=== PATIENT | female | born 1985 | race Caucasian/White ===

== ENCOUNTER 2021-11-05 21:14 | Emergency (ER) | payer OTHER, SELFPAY ==
[2021-11-05 21:48] VITALS: BP 176/80; PULSE 69; RESP 18; TEMP 36.4; O2SAT 98; BMI 44.2
--- NOTE | 2021-11-06 00:19 | CTR_ITS ---
PROCEDURE INFORMATION: Exam: CT Head Without Contrast Exam date and time: 11/06/2021 12:57 AM Age: 36 years old Clinical indication: Pain; Patient HX: C/O headache with dizziness. Hypertensive on monitor. ; Additional info: Headache dizziness TECHNIQUE: Imaging protocol: Computed tomography of the head without contrast. Radiation optimization: All CT scans at this facility use at least one of these dose optimization techniques: automated exposure control; mA and/or kV adjustment per patient size (includes targeted exams where dose is matched to clinical indication); or iterative reconstruction. COMPARISON: No relevant prior studies available. RADIATION DOSE METRICS: Total DLP (mGy-cm): 904.57 FINDINGS: Brain: No acute hemorrhage identified. No large territorial areas of hypoattenuation concerning for ischemic infarct identified. No intracranial mass effect. Cerebral ventricles: The ventricles are within normal limits. Paranasal sinuses: The visualized sinuses are unremarkable. Mastoid air cells: The visualized mastoid air cells are well aerated. Bones/joints: The osseous structures are intact. Soft tissues: Unremarkable. CT/CT head wo con* [id number] IMPRESSION: No acute intracranial abnormality.
--- NOTE | 2021-11-06 00:19 | ECG_ITS ---
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 Measurements Intervals [place] Rate: 58 P: 8 AR: 198 QRS: 34 QRSD: 89 T: 11 QT: 414 QTc: 409 Interpretive Statements SINUS BRADYCARDIA WITH SINUS ARRHYTHMIA LOW QRS VOLTAGE IN PRECORDIAL LEADS [QRS DEFLECTION < 1.0 mV IN CHEST LEADS] No previous ECG available for comparison Electronically Signed On 11-07-2021 5:42:29 CDT by Aaron Rollins M.D. [email or web address]/[id number]
--- NOTE | 2021-11-06 00:24 | XRR_ITS ---
PROCEDURE INFORMATION: Exam: XR Chest Exam date and time: 11/06/2021 12:45 AM Age: 36 years old Clinical indication: Other: Dizziness/hypertensive; Patient HX: C/O dizziness with hypertension. ; Additional info: Dizziness, HTN TECHNIQUE: Imaging protocol: Radiologic exam of the chest. Views: 1 view. COMPARISON: No relevant prior studies available. FINDINGS: Lungs: The lung parenchyma is clear. Pleural spaces: No pneumothorax. No pleural effusion. Heart/Mediastinum: The cardiomediastinal silhouette is within normal limits. Bones/joints: Unremarkable. XR/XR chest 1V portable [id number] IMPRESSION: No acute cardiopulmonary abnormality.
--- NOTE | 2021-11-06 00:26 | ED_ITS ---
HPI - Dizziness General: Chief Complaint: Dizziness Stated Complaint: dizzy/body tingles Time Seen by Provider: 11/06/21 00:18 History of Present Illness: HPI Narrative: 36-year-old female comes in today for complaints of headache and dizziness. Patient also reports some nausea. Patient does have a history of migraines but says this is different than her usual migraine. Patient also has a history of diabetes and denies any problems with her blood sugar. Patient does take lisinopril for renal protection due to diabetes. Patient reports headache start ed last night but when she woke up she was without headache but had significant dizziness. Patient responds appropriately to questions. Associated symptoms: Reports chest pain (Reports discomfort), headache(s) and nausea; Denies vomiting Review of Systems General: Reports: 10 or more systems reviewed and unremarkable except in HPI and below Const: Denies: fever(s) Card: Reports: chest pain (Reports discomfort) Resp: Denies: dyspnea GI: Reports: nausea; Denies: vomiting : Denies: difficulty voiding Musc: Reports: extremity swelling Skin/Breast: Denies: rash Neuro: Reports: headache(s) and dizziness PENDING SALE TO [facility] ED Female Reproductive History: Date of last menstrual period: 11/01/21 Physical Exam Const: COMMON NORMALS: alert HENMT: COMMON NORMALS: Normal external nose present HEAD & SCALP: normal to inspection NOSE: Normal external nose present MOUTH: Normal oral and palatal mucosa present THROAT: posterior oropharynx normal Eye: COMMON NORMALS: Equal, round and reactive pupils present and EOMs intact bilaterally PUPIL: Yes Equal, round and reactive pupils present Neck/C-Spine: COMMON NORMALS: full ROM and no meningeal signs Resp: COMMON NORMALS: normal respiratory effort and clear to auscultation bilaterally AUSCULTATION: clear to auscultation bilaterally Cardio: COMMON NORMALS: regular rate and regular rhythm RATE: regular rate RHYTHM: regular rhythm GI: COMMON NORMALS: non-tender : COMMON NORMALS: Yes no CVA tenderness BLADDER/KIDNEY EXAM: Yes no CVA tenderness Back/Pelvis: COMMON NORMALS: no CVA tenderness Extremity: COMMON NORMALS: no pedal edema Neuro: SENSORIUM/ORIENTATION: Yes alert MENINGEAL SIGNS: Yes no meningeal signs Skin: COMMON NORMALS: no rashes or lesions noted GENERAL SKIN EXAM: no rashes or lesions noted Course Vital Signs: Vital signs: Vital Signs Temperature 97.6 F 11/05/21 21:48 Pulse Rate 62 11/06/21 02:38 Respiratory Rate 18 11/05/21 21:48 Blood Pressure 124/72 11/06/21 02:38 Pulse Oximetry 98 11/05/21 21:48 MDM - Dizziness Medical Decision Making 36-year-old female comes in today for complaints of dizziness and a headache. Patient reports that last night she had a headache and went to bed but when she awoke this morning the headache was better but she had increasing dizziness. Patient has a history of migraine headaches. Patient reported some nausea but no vomiting. Patient denied any other symptoms. On exam patient was alert and oriented. No focal neurodeficits were noted. Patient's blood pressure was elevated with a systolic reading of 176. No edema was noted in extremities. Skin was warm and dry. Differential diagnosis includes not limited to intracranial bleeding, leg arthritis, migraine headache, ACS. CT of the head was unremarkable. CBC and CMP were unremarkable. Patient was not . Patient was treated with 1 L of IV fluids and a migraine cocktail consisting of Reglan, Toradol, and diphenhydramine. Patient was also given dexamethasone for prevention of rebound headache. Patient had cessation of headache. Patient was recommended to follow-up with primary care for recheck of blood pressure and further evaluation as needed. Patient was also recommended to use motion sickness medicine and change positions slowly if dizziness persists. Patient reported understanding of care plan need for follow-up or return to the ER for worsening symptoms. Lab Data : 11/06/21 00:45 11/06/21 00:45 Laboratory Results WBC 11.0 10^3/uL (4.0-10.0) H 11/06/21 00:45 RBC 4.58 10^6/uL (4.1-5.3) 11/06/21 00:45 Hgb 13.7 g/dL (11.5-15.3) 11/06/21 00:45 Hct 39.5 % (37.0-47.0) 11/06/21 00:45 MCV 86.2 fl (81-99) 11/06/21 00:45 MCH 29.9 pg (28.0-34.0) 11/06/21 00:45 MCHC 34.7 g/dL (30.0-36.0) 11/06/21 00:45 RDW 11.9 % (12.1-15.1) L 11/06/21 00:45 Plt Count 269 10^3/cmm (130-400) 11/06/21 00:45 MPV 9.9 fL (7.4-10.4) 11/06/21 00:45 Neut % (Auto) 54.4 % 11/06/21 00:45 Lymph % (Auto) 36.0 % 11/06/21 00:45 [place] % (Auto) 6.4 % 11/06/21 00:45 Eos % (Auto) 2.5 % 11/06/21 00:45 Baso % (Auto) 0.5 % 11/06/21 00:45 Neut # (Auto) 5.99 10^3/uL (1.8-7.7) 11/06/21 00:45 Lymph # (Auto) 4.0 10^3/uL (0.8-4.8) 11/06/21 00:45 [place] # (Auto) 0.7 10^3/uL (0.2-0.9) 11/06/21 00:45 Eos # (Auto) 0.3 10^3/uL (0.0-0.8) 11/06/21 00:45 Baso # (Auto) 0.1 10^3/uL (0.0-0.1) 11/06/21 00:45 Nucleated RBC % (auto) 0 % 11/06/21 00:45 Nucleated RBCs # 0.0 /100WBC 11/06/21 00:45 Sodium 139 mmol/L (136-145) 11/06/21 00:45 Potassium 4.0 mmol/L (3.5-5.1) 11/06/21 00:45 Chloride 105 mmol/L (98-107) 11/06/21 00:45 Carbon Dioxide 23 mmol/L (22-29) 11/06/21 00:45 Anion Gap 15.0 (5-19) 11/06/21 00:45 BUN 10 mg/dL (6-20) 11/06/21 00:45 Creatinine 0.5 mg/dL (0.5-0.9) 11/06/21 00:45 GFR Calculation 141.2 mL/min (90-130) H 11/06/21 00:45 Glucose 118 mg/dL (65-115) H 11/06/21 00:45 Calculated Osmolality 288 mOsm/kg (285-295) 11/06/21 00:45 Calcium 9.2 mg/dL (8.5-10.5) 11/06/21 00:45 Total Bilirubin 0.3 mg/dL (0.15-1.2) 11/06/21 00:45 AST 16 U/L (0-32) 11/06/21 00:45 ALT 20 U/L (0-33) 11/06/21 00:45 Alkaline Phosphatase 64 IU/L (35-105) 11/06/21 00:45 Troponin T Gen 5 ng/L 6 ng/L (0-10) 11/06/21 00:45 Total Protein 6.8 g/dL (6.6-8.7) 11/06/21 00:45 Albumin 4.3 g/dL (3.5-5.2) 11/06/21 00:45 Globulin 2.5 g/dL (1.3-4.6) 11/06/21 00:45 HCG, Qual Negative (Negative) 11/06/21 00:45 EKG Data EKG 1: EKG interpretation date: 11/06/21 EKG interpretation time: 00:51 Prior EKG tracings: not available for review Interpretation: EKG shows a sinus rhythm with a a slightly irregular rate at 58 bpm. This appears to be sinus arrhythmia. No ST elevation or ectopy is noted. No prior exam was available for comparison. Discharge Plan Discharge Patient Disposition: Home Clinical Impression: Dizziness Headache Qualifiers: Headache type: unspecified Headache chronicity pattern: episodic headache Intractability: not intractable Qualified Code(s): R51.9 - Headache, unspecified Condition: Stable Discharge Orders: Discharge ED (Routine); Ordered 11/06/21 Ordered By: Rishi Taveras Discharge Diet: Usual diet Discharge Activity: Increase activity as tolerated Patient Instructions: Dizziness (ED), Opioid Safety Activity Restrictions/Additional Instructions: Home and rest. Drink plenty of fluids. Activity as tolerated. Follow-up with primary care for further evaluation and repeat check of your blood pressure. Sometimes high blood pressure can cause abnormal dizziness. With your history of migraine headaches that may be another reason for your dizziness. At this time change positions slowly. You can use motion sickness medicine to help with the dizziness if needed. Return to the ER for worsening symptoms or new concerns. Coding Level of Care Code ED Cold Roll Catcher for Perri Ndiaye Exam Comprehensive
[2021-11-06] MEDS: ketorolac 30 mg/mL INJ 15 MG IVP (00:48)
[2021-11-06] MEDS: metoclopramide 5 mg/mL SDV 2 mL 10 MG IVP (00:48)
[2021-11-06] MEDS: diphenhydrAMINE 50 mg/mL SDV 1mL 25 MG IVP (00:48)
[2021-11-06] MEDS: sodium chloride 0.9% 1,000 ML 999 ML IV (00:49)
[2021-11-06 00:51] LABS: Basophils # 0.1 10^3/uL (0.0-0.1); Basophils % 0.5 %; Eosinophils # 0.3 10^3/uL (0.0-0.8); Eosinophils % 2.5 %; Hematocrit 39.5 % (37.0-47.0); Hemoglobin 13.7 g/dL (11.5-15.3); Mean Corpuscular HGB Conc 34.7 g/dL (30.0-36.0); Mean Corpuscular Hemoglobin 29.9 pg (28.0-34.0); Mean Corpuscular Volume 86.2 fl (81-99); Mean Platelet Volume 9.9 fL (7.4-10.4); Monocytes # 0.7 10^3/uL (0.2-0.9); Monocytes % 6.4 %; Neutrophils # 5.99 10^3/uL (1.8-7.7); Neutrophils % 54.4 %; Nucleated Red Blood Cells % 0 %; Platelet Count 269 10^3/cmm (130-400); Red Blood Count 4.58 10^6/uL (4.1-5.3); Red Cell Distribution Width 11.9 % (12.1-15.1)
[2021-11-06 01:04] LABS: HCG, Serum Qual Negative (Negative)
[2021-11-06 01:11] LABS: Troponin T (5th) Once 6 ng/L (0-10)
[2021-11-06 01:12] LABS: Alanine Aminotransferase 20 U/L (0-33); Albumin Level 4.3 g/dL (3.5-5.2); Alkaline Phosphatase 64 IU/L (35-105); Aspartate Amino Transferase 16 U/L (0-32); Blood Urea Nitrogen 10 mg/dL (6-20); Calcium 9.2 mg/dL (8.5-10.5); Carbon Dioxide 23 mmol/L (22-29); Chloride 105 mmol/L (98-107); Globulin 2.5 g/dL (1.3-4.6); Glomerular Filtration Rate 141.2 mL/min (90-130); Glucose 118 mg/dL (65-115); Osmolality Calculated 288 mOsm/kg (285-295); Sodium 139 mmol/L (136-145); Total Bilirubin 0.3 mg/dL (0.15-1.2); Total Protein 6.8 g/dL (6.6-8.7)
[2021-11-06 02:38] VITALS: BP 120/64; BP 122/64; BP 124/72; PULSE 60; PULSE 62; PULSE 64
[2021-11-06] MEDS: dexamethasone 4 mg/mL INJ 8 MG IVP (03:05)
[2021-11-06 03:40] VITALS: BP 128/86; PULSE 60; RESP 18; O2SAT 95
== END 2021-11-06 03:43 | disposition home or self-care (01) ==
PROVIDERS: Emergency Provider Nurse Practitioner Family
DX: R51.9 Headache, unspecified (principal)
CPT/HCPCS: 70450; 71045; 80053; 84484; 84703; 85025; 93005; 96361; 96374; 96375; 99285; J1100; J1200; J1885; J2765; J7030

== ENCOUNTER 2022-01-05 23:52 | Emergency (ER) | payer BC, MEDICAID, SELFPAY ==
[2022-01-06 00:07] VITALS: BP 138/81; PULSE 71; RESP 16; TEMP 36.8; O2SAT 98; BMI 40.6
--- NOTE | 2022-01-06 00:33 | W.ED.CHESTPA ---
HPI - Chest Pain General: Chief Complaint: Chest Pain Stated Complaint: cp Time Seen by Provider: 01/06/22 00:32 History of Present Illness: 36-year-old female comes in today for complaints of chest discomfort. Patient has recently found out that she was . Patient also has a history of anxiety that causes chest discomfort. Patient was not able to take her alprazolam due to the risk to the fetus. Patient appears nontoxic. Patient appears in mild to no pain. Associated symptoms: Deny dyspnea, nausea or vomiting Review of Systems Card: Reports: chest pain Resp: Denies: dyspnea GI: Denies: nausea or vomiting : Denies: difficulty voiding [facility] ED Female Reproductive History: Date of last menstrual period: 11/01/21 Physical Exam Const: COMMON NORMALS: alert HENMT: COMMON NORMALS: normocephalic HEAD & SCALP: normocephalic MOUTH: Normal oral and palatal mucosa present Neck/C-Spine: COMMON NORMALS: full ROM Resp: COMMON NORMALS: normal respiratory effort and clear to auscultation bilaterally AUSCULTATION: clear to auscultation bilaterally Cardio: COMMON NORMALS: regular rate and regular rhythm RATE: regular rate RHYTHM: regular rhythm GI: COMMON NORMALS: Soft to palpation PALPATION: Yes Soft to palpation Extremity: COMMON NORMALS: no pedal edema Neuro: SENSORIUM/ORIENTATION: Yes alert Skin: COMMON NORMALS: no rashes or lesions noted and turgor normal GENERAL SKIN EXAM: no rashes or lesions noted and turgor normal Course Vital Signs: Vital signs: Vital Signs Temperature 98.2 F 01/06/22 00:07 Pulse Rate 70 01/06/22 00:52 Respiratory Rate 18 01/06/22 00:52 Blood Pressure 113/81 01/06/22 00:52 Pulse Oximetry 98 01/06/22 00:52 Oxygen Delivery Me thod 01/06/22 00:52 MDM - Chest Pain Medical Decision Making 36-year-old female comes in today for complaints of chest discomfort. Patient reports she was getting ready to bed and had laid down and started having chest pressure. Patient reports that it is very similar to her previous episodes due to her anxiety. Patient had no medications to take as she is stopped taking her alprazolam when she gets like this due to the adverse effects that can cause during . On exam lungs were clear to auscultation. Heart rate was regular. Patient did have a very discrete systolic murmur on auscultation. Blood pressure was 138/81. Vital signs otherwise were normal. No edema was noted in the extremities. Differential diagnosis includes but not limited to anxiety, myocarditis, ACS, PE. Blood pressure and pulse were in the normal range and suspicion for pulmonary embolism was low. Troponin was negative at 6 so ACS was ruled out. BNP was 41. CRP was unremarkable. With a low troponin and the CRP. Unremarkable I do not feel the patient meets criteria for myocarditis. Most likely is due to patient's anxiety patient was given 25 mg of hydroxyzine, Vistaril, which resolved her discomfort. Recommended patient follow-up with primary care in the morning which she has an appointment at 9 AM with her HASHER OPERATOR to discuss further evaluation and treatment for symptoms. Lab Data : 01/06/22 00:01/06/22: Laboratory Results WBC 10.9 10^3/uL (4.0-10.0) H 01/06/22: RBC 4.77 10^6/uL (4.1-5.3) 01/06/22: Hgb 14.6 g/dL (11.5-15.3) 01/06/22: Hct 43.6 % (37.0-47.0) 01/06/22: MCV 91.4 fl (81-99) 01/06/22: MCH 30.6 pg (28.0-34.0) 01/06/22 MCHC 33.5 g/dL (30.0-36.0) 01/06/22: RDW 12.8 % (12.1-15.1) 01/06/22: Plt Count 277 10^3/cmm (130-400) 01/06/22: MPV 9.8 fL (7.4-10.4) 01/06/22: Neut % (Auto) 53.6 % 01/06/22: Lymph % (Auto) 36.1 % 01/06/22: [place] % (Auto) 6.9 % 01/06/22: Eos % (Auto) 2.6 % 01/06/22:31 Baso % (Auto) 0.6 % 01/06/22 00:31 Neut # (Auto) 5.84 10^3/uL (1.8-7.7) 01/06/22 00:31 Lymph # (Auto) 3.9 10^3/uL (0.8-4.8) 01/06/22 00:31 [place] # (Auto) 0.8 10^3/uL (0.2-0.9) 01/06/22 00: Eos # (Auto) 0.3 10^3/uL (0.0-0.8) 01/06/22 00: Baso # (Auto) 0.1 10^3/uL (0.0-0.1) 01/06/22 00:31 Nucleated RBC % (auto) 0 % 01/06/22 00: Nucleated RBCs # 0.0 /100WBC 01/06/22 00:31 Sodium 136 mmol/L (136-145) 01/06/22 00:31 Potassium 4.1 mmol/L (3.5-5.1) 01/06/22 00: Chloride 100 mmol/L (98-107) 01/06/22 00: Carbon Dioxide 22 mmol/L (22-29) 01/06/22 00:31 Anion Gap 18.1 (5-19) 01/06/22 00:31 BUN 6 mg/dL (6-20) 01/06/22 00:31 Creatinine 0.5 mg/dL (0.5-0.9) 01/06/22 00:31 GFR Calculation 141.2 mL/min (90-130) H 01/06/22 00: Glucose 171 mg/dL (65-115) H 01/06/22 00:31 Calculated Osmolality 284 mOsm/kg (285-295) L 01/06/22 00: Calcium 9.6 mg/dL (8.5-10.5) 01/06/22 00:31 Total Bilirubin 0.2 mg/dL (0.15-1.2) 01/06/22 00:31 AST 16 U/L (0-32) 01/06/22 00:31 ALT 20 U/L (0-33) 01/06/22 00:31 Alkaline Phosphatase 80 U/L (35-105) 01/06/22 00:31 Troponin T Baseline 6 ng/L (0-10) 01/06/22 00:31 C-Reactive Protein 6.9 mg/L (0.0-4.9) H 01/06/22 00:31 NT-Pro-B Natriuret Pep 41 pg/mL (0-125) 01/06/22 00:31 Total Protein 7.1 g/dL (6.6-8.7) 01/06/22 00:31 Albumin 4.2 g/dL (3.5-5.2) 01/06/22 00:31 Globulin 2.9 g/dL (1.3-4.6) 01/06/22 00:31 HCG, Qual Positive (Negative) H 01/06/22 01:21 EKG Data EKG 1: EKG interpretation date: 01/06/22 EKG interpretation time: 00:50 Prior EKG tracings: not available for review Interpretation: EKG shows a sinus rhythm with regular rate at [address] elevation or ectopy is noted. No prior exam is available for comparison. Discharge Plan Discharge Patient Disposition: Home Clinical Impression: Anxiety, First trimester Chest pain Qualifiers: Chest pain type: unspecified Qualified Code(s): R07.9 - Chest pain, unspecified Condition: Stable Discharge Orders: Discharge ED (Routine); Ordered 01/06/22 Ordered By: Rishi Taveras Discharge Diet: Usual diet Discharge Activity: Increase activity as tolerated Patient Instructions: Chest Pain (ED), Opioid Safety Activity Restrictions/Additional Instructions: Home and rest. Drink plenty of fluids. Follow-up with HASHER OPERATOR for further evaluation and treatment. Return to ER for new concerns. Coding Level of Care Code ED Roof Shingler for Chg Fwd Exam Comprehensive
[2022-01-06 00:45] LABS: Basophils # 0.1 10^3/uL (0.0-0.1); Basophils % 0.6 %; Eosinophils # 0.3 10^3/uL (0.0-0.8); Eosinophils % 2.6 %; Hematocrit 43.6 % (37.0-47.0); Hemoglobin 14.6 g/dL (11.5-15.3); Lymphocytes # 3.9 10^3/uL (0.8-4.8); Lymphocytes % 36.1 %; Mean Corpuscular HGB Conc 33.5 g/dL (30.0-36.0); Mean Corpuscular Hemoglobin 30.6 pg (28.0-34.0); Mean Corpuscular Volume 91.4 fl (81-99); Mean Platelet Volume 9.8 fL (7.4-10.4); Monocytes # 0.8 10^3/uL (0.2-0.9); Monocytes % 6.9 %; Neutrophils # 5.84 10^3/uL (1.8-7.7); Neutrophils % 53.6 %; Nucleated Red Blood Cells % 0 %; Platelet Count 277 10^3/cmm (130-400); Red Blood Count 4.77 10^6/uL (4.1-5.3); Red Cell Distribution Width 12.8 % (12.1-15.1); White Blood Count 10.9 10^3/uL (4.0-10.0)
[2022-01-06] MEDS: hyDROXYzine 25 mg Capsule PO (00:49)
[2022-01-06 00:52] VITALS: BP 113/81; PULSE 70; RESP 18; O2SAT 98
[2022-01-06 01:22] LABS: Troponin(5th) Baseline 6 ng/L (0-10)
[2022-01-06 01:30] LABS: Alanine Aminotransferase 20 U/L (0-33); Albumin Level 4.2 g/dL (3.5-5.2); Alkaline Phosphatase 80 U/L (35-105); Aspartate Amino Transferase 16 U/L (0-32); Blood Urea Nitrogen 6 mg/dL (6-20); C Reactive Protein 6.9 mg/L (0.0-4.9); Calcium 9.6 mg/dL (8.5-10.5); Carbon Dioxide 22 mmol/L (22-29); Chloride 100 mmol/L (98-107); Globulin 2.9 g/dL (1.3-4.6); Glomerular Filtration Rate 141.2 mL/min (90-130); Glucose 171 mg/dL (65-115); NT Pro B Type Natriuretic Pept 41 pg/mL (0-125); Osmolality Calculated 284 mOsm/kg (285-295); Sodium 136 mmol/L (136-145); Total Bilirubin 0.2 mg/dL (0.15-1.2); Total Protein 7.1 g/dL (6.6-8.7)
[2022-01-06 01:31] LABS: HCG, Serum Qual Positive (Negative)
[2022-01-06 01:43] LABS: Anion Gap 18.1 (5-19); Potassium 4.1 mmol/L (3.5-5.1)
[2022-01-06 01:59] VITALS: BP 118/70; PULSE 75; RESP 16; O2SAT 99
--- NOTE | 2022-01-06 06:03 | ECG_ITS ---
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 Measurements Intervals [place] Rate: 76 P: -3 TN: 179 QRS: 50 QRSD: 96 T: 39 QT: 373 QTc: 419 Interpretive Statements SINUS RHYTHM LOW QRS VOLTAGE IN PRECORDIAL LEADS [QRS DEFLECTION < 1.0 mV IN CHEST LEADS] Compared to ECG 11/05/2021 23:49:50 Sinus bradycardia no longer present Sinus arrhythmia no longer present Electronically Signed On 01-06-2022 18:23:23 CDT by Jackelyn Shah M.D. [id number]
== END 2022-01-06 01:59 | disposition home or self-care (01) ==
PROVIDERS: Emergency Provider Nurse Practitioner Family
DX: O99.341 Other mental disorders complicating pregnancy, first trimester (principal); F41.9 Anxiety disorder, unspecified; O26.891 Other specified pregnancy related conditions, first trimester; R07.9 Chest pain, unspecified; Z3A.00 Weeks of gestation of pregnancy not specified
CPT/HCPCS: 80053; 83880; 84484; 84703; 85025; 86140; 93005; 99285

== ENCOUNTER → 2022-01-06 14:52 | Outpatient (BNVA) | payer BC, MEDICAID, SELFPAY | PROVIDERS: Visit Provider Nurse Practitioner Women's Health | DX: Z34.81 Encounter for supervision of other normal pregnancy, first trimester (principal); Z3A.01 Less than 8 weeks gestation of pregnancy | CPT/HCPCS: 76817; 80307; 81025; 83036; 84439; 84443; 85027; 86592; 86762; 86803; 86850; 86900; 87086; 87340; 87806 ==

== ENCOUNTER → 2022-01-13 08:49 | Outpatient (BNVA) | payer BC, MEDICAID, SELFPAY | PROVIDERS: Visit Provider Obstetrics & Gynecology | DX: Z34.91 Encounter for supervision of normal pregnancy, unspecified, first trimester (principal); Z3A.01 Less than 8 weeks gestation of pregnancy | CPT/HCPCS: 76801; 76817; 81000 ==

== ENCOUNTER → 2022-01-23 08:43 | Outpatient (BNVA) | payer BC, MEDICAID, SELFPAY | PROVIDERS: Visit Provider Obstetrics & Gynecology | DX: O09.899 Supervision of other high risk pregnancies, unspecified trimester (principal); E11.9 Type 2 diabetes mellitus without complications; F41.9 Anxiety disorder, unspecified; J44.9 Chronic obstructive pulmonary disease, unspecified | CPT/HCPCS: 81000 ==

== ENCOUNTER → 2022-01-27 13:24 | Outpatient (BNVA) | payer BC, MEDICAID, SELFPAY | PROVIDERS: Visit Provider Obstetrics & Gynecology | DX: O26.899 Other specified pregnancy related conditions, unspecified trimester (principal); O09.899 Supervision of other high risk pregnancies, unspecified trimester; Z12.4 Encounter for screening for malignant neoplasm of cervix; N89.8 Other specified noninflammatory disorders of vagina | CPT/HCPCS: 81000; 87491; 87591; 87624; 87661 ==

== ENCOUNTER → 2022-02-02 10:29 | Outpatient (BNVA) | payer BC, MEDICAID, SELFPAY | PROVIDERS: Visit Provider Obstetrics & Gynecology | DX: Z34.92 Encounter for supervision of normal pregnancy, unspecified, second trimester (principal); Z3A.14 14 weeks gestation of pregnancy | CPT/HCPCS: 76801; 81000 ==

== ENCOUNTER → 2022-02-09 13:05 | Outpatient (BNVA) | payer BC, MEDICAID, SELFPAY | PROVIDERS: Visit Provider Obstetrics & Gynecology | DX: O09.899 Supervision of other high risk pregnancies, unspecified trimester (principal) | CPT/HCPCS: 81000 ==

== ENCOUNTER → 2022-02-17 11:00 | Outpatient (BNVA) | payer BC, MEDICAID, SELFPAY | PROVIDERS: Visit Provider Obstetrics & Gynecology | DX: O09.899 Supervision of other high risk pregnancies, unspecified trimester (principal); Z3A.00 Weeks of gestation of pregnancy not specified | CPT/HCPCS: 81000 ==

== ENCOUNTER → 2022-03-03 10:44 | Outpatient (BNVA) | payer BC, MEDICAID, SELFPAY | PROVIDERS: Visit Provider Obstetrics & Gynecology | DX: O09.899 Supervision of other high risk pregnancies, unspecified trimester (principal); Z3A.00 Weeks of gestation of pregnancy not specified | CPT/HCPCS: 81000 ==

== ENCOUNTER → 2022-03-09 09:56 | Outpatient (BNVA) | payer BC, MEDICAID, SELFPAY | PROVIDERS: Visit Provider Obstetrics & Gynecology | DX: O09.899 Supervision of other high risk pregnancies, unspecified trimester (principal) | CPT/HCPCS: 81000 ==

== ENCOUNTER → 2022-03-16 11:03 | Outpatient (BNVA) | payer BC, MEDICAID, SELFPAY | PROVIDERS: Visit Provider Obstetrics & Gynecology | DX: O09.899 Supervision of other high risk pregnancies, unspecified trimester (principal); O24.319 Unspecified pre-existing diabetes mellitus in pregnancy, unspecified trimester; E11.9 Type 2 diabetes mellitus without complications; J44.9 Chronic obstructive pulmonary disease, unspecified; F41.9 Anxiety disorder, unspecified | CPT/HCPCS: 81000 ==

== ENCOUNTER → 2022-03-23 09:25 | Outpatient (BNVA) | payer BC, MEDICAID, SELFPAY | PROVIDERS: Visit Provider Obstetrics & Gynecology | DX: O09.899 Supervision of other high risk pregnancies, unspecified trimester (principal); O24.319 Unspecified pre-existing diabetes mellitus in pregnancy, unspecified trimester; E11.9 Type 2 diabetes mellitus without complications; J44.9 Chronic obstructive pulmonary disease, unspecified; F41.9 Anxiety disorder, unspecified | CPT/HCPCS: 81000 ==

== ENCOUNTER 2022-03-29 12:50 | Emergency (ER) | payer BC, MEDICAID, SELFPAY ==
[2022-03-29 13:03] VITALS: BP 124/81; PULSE 94; RESP 14; TEMP 37; O2SAT 98; BMI 42.3
--- NOTE | 2022-03-29 13:15 | USR_ITS ---
PROCEDURE INFORMATION: Exam: US , Limited Exam date and time: 03/29/2022 1:42 PM Age: 36 years old Clinical indication: complicated by abdominal or pelvic pain; Lower; Second trimester (14 weeks 0 days to 27 weeks 6 days); Gestational age or lmp: 17 week 5 day; ; Additional info: Cramping, vaginal bleeding TECHNIQUE: Imaging protocol: Real-time ultrasound of the maternal uterus with image documentation. Exam focused on the clinical indication. COMPARISON: US OB <= 14 weeks fetus [id number] 02/02/2022 10:32 AM FINDINGS: There is a single living intrauterine with an estimated gestational age of 17 weeks and 5 days based on the femoral length of 2.6 cm. heart rate of 147 bpm is identified. The amniotic fluid index measures 14.6 cm. The cervical length is 3.4 cm. The placenta is posterior. US/US OB >= 14 weeks fetus [id number] IMPRESSION: There is a single living intrauterine with an estimated gestational age of 17 weeks and 5 days
--- NOTE | 2022-03-29 13:17 | ED_ITS ---
HPI - Female Genitourinary General: Chief complaint: Urogenital-Female Stated complaint: 17 weeks abd pains and spotting Time Seen by Provider: 03/29/22 13:10 History of Present Illness: 36-year-old female presents with some lower abdominal cramping along with a little bit spotting. Patient reports that she is 17 weeks . That she had some cramping all morning and then had mild streak of blood on a pain liner this morning. That she called her OB who sent her to the ER for further evaluation. Patient reports she still has a bit of mild cramping now but has not had any further spotting ability at 1 time deal. Patient reports that she is been treated frequently for your UTI throughout her . Patient with no other systemic complaints. Associated symptoms: Deny headache(s) or nausea Date of Last Menstrual Period: 11/01/21 Review of Systems Const: Denies: fever(s) or chills Card: Denies: chest pain or palpitations Resp: Denies: dyspnea or productive cough GI: Denies: nausea or vomiting : Reports: other (Please see HPI); Denies: flank pain Musc: Reports: neck pain; Denies: back pain or extremity pain Skin/Breast: Denies: rash or erythema Neuro: Denies: headache(s) or dizziness Psych: Denies: anxiety or depression PFSH ED PFSH: Medical History Anxiety previously managed with alprazolam. Stopped end of November 2021. COPD (chronic obstructive pulmonary disease) has rescue inhaler Hypercholesteremia No pertinent past medical history neghx: htn,thyroid,dvt/pe PCP: None PCOS (polycystic ovarian syndrome) Type 2 diabetes mellitus was managed with victoza, farxiga and metformin. Has been out of medication since September 2021. Surgical History Hx of section 2008-- FTD ? CPD Hx of colonoscopy (~2019) r/t stomach discomfort; no significant findings Hx of hernia repair (~02/2019) Ventral repair; she feels this has returned Status post carpal tunnel release of both wrists (~08/2018) Family History Grandmother Breast cancer Paternal--dx age unknown Diabetes Maternal and Paternal Heart disease Maternal Hypercholesteremia Paternal and Maternal Hypertension Maternal Mother Diabetes Heart disease Hypercholesteremia Thyroid disease Father Diabetes Stroke Grandfather Diabetes Maternal and paternal Hypercholesteremia Paternal and Maternal Denies family history of Colon cancer Ovarian cancer Uterine cancer Social History Smoking and tobacco status: former smoker (quit 01/09/2022) Female Reproductive History: Date of last menstrual period: 11/01/21 Physical Exam Const: COMMON NORMALS: no acute distress, average body habitus, patient oriented x3 and alert HENMT: COMMON NORMALS: hearing grossly normal bilaterally and moist oral mucous membranes Resp: COMMON NORMALS: normal respiratory effort, No retractions and No use of accessory muscles Cardio: COMMON NORMALS: regular rate and regular rhythm RATE: regular rate RHYTHM: regular rhythm GI: COMMON NORMALS: Soft to palpation and non-tender PALPATION: Yes Soft to palpation : COMMON NORMALS: Yes no CVA tenderness BLADDER/KIDNEY EXAM: Yes bladder normal to palpation, Yes no CVA tenderness and No CVA tenderness BIMANUAL EXAM - VAGINA & UTERUS: Yes bladder normal to palpation Back/Pelvis: COMMON NORMALS: no CVA tenderness GENERAL BACK: No CVA tenderness Extremity: COMMON NORMALS: normal to inspection and full ROM Neuro: COMMON NORMALS: patient oriented x3, no focal motor deficits and no sensory deficits noted SENSORIUM/ORIENTATION: Yes alert Psych: COMMON NORMALS: Normal thought process present, cooperative and normal affect THOUGHT PROCESS: Normal thought process present Skin: COMMON NORMALS: no rashes or lesions noted and turgor normal GENERAL SKIN EXAM: no rashes or lesions noted and turgor normal Course Vital Signs: Vital signs: Vital Signs Temperature 98.6 F 03/29/22 13:03 Pulse Rate 94 03/29/22 13:03 Respiratory Rate 14 03/29/22 13:03 Blood Pressure 124/81 03/29/22 13:03 Pulse Oximetry 98 03/29/22 13:03 Oxygen Delivery Me thod 03/29/22 13:03 MDM - Female Medical Decision Making Patient with reviewed assuring ultrasound. Patient with UA that looks contaminated. Patient's recently been treated for UTI with so I will have her follow-up with her primary care provider and OB. Patient stable and discharged home. Patient told the nurse later in her visit that she had had intercourse this morning and forgot to tell me that. This is likely the cause of her mild bleeding Lab Data Radiology Impressions Ultrasound 03/29/22 13:15 IMPRESSION: There is a single living intrauterine with an estimated gestational age of 17 weeks and 5 days Laboratory Results Urine Color Yellow (Yellow) 03/29/22 13:35 Urine Appearance Hazy (CLEAR) A 03/29/22 13:35 Urine pH 6 (5-7) 03/29/22 13:35 Ur Specific [place] 1.020 (1.005-1.030) 03/29/22 13:35 Urine Protein Neg (Negative) 03/29/22 13:35 Urine Glucose (UA) 1+ (Normal) H 03/29/22 13:35 Urine Ketones Negative (Negative) 03/29/22 13:35 Urine Blood Neg (Negative) 03/29/22 13:35 Urine Nitrate Negative (Negative) 03/29/22 13:35 Urine Bilirubin Neg (Negative) 03/29/22 13:35 Urine Urobilinogen Norm mg/dL (Negative) 03/29/22 13:35 Ur Leukocyte Esterase Negative (Negative) 03/29/22 13:35 Urine RBC None /hpf (0-2) 03/29/22 13:35 Urine WBC 0-4 /hpf (0-5) H 03/29/22 13:35 Ur Squamous Epith Cells 15-25 /hpf (0-5) H 03/29/22 13:35 Amorphous Sediment Not Reportable 03/29/22 13:35 Urine Bacteria 2+ /hpf (NONE) H 03/29/22 13:35 Urine Mucus Trace /hpf 03/29/22 13:35 Urine Yeast Trace /hpf 03/29/22 13:35 Discharge Plan Discharge Patient Disposition: Home Clinical Impression: Vaginal bleeding in patient at less than 20 weeks gestation Condition: Stable Prescriptions: No Action prenat.vits,vivian,[id number] Tablet 1 tab PO DAILY (DME) insulin syringe-needle U-100 [BD Insulin Syringe] 1 mL 29 gauge x 1/2 syringe See Rx Instructions .Route Qty: 150 5RF Rx Instructions: As directed (DME) Blood Glucose Test Strip See Rx Instructions .Route Qty: 150 5RF Rx Instructions: four times per day (DME) blood-glucose meter [Blood Glucose Monitoring] Kit See Rx Instructions .Route Qty: 1 0RF Rx Instructions: As directed fish oil 1,200 mg PO .daily insulin lispro [Humalog U-100 Insulin] 100 unit/mL solution See Rx Instructions SUBCUT .COMPLEX Rx Instructions: subcutaneously; use as directed for 19 U in am 14 U at dinner insulin NPH isoph U-100 human 100 unit/mL suspension See Rx Instructions SUBCUT .see notes Qty: 10 0RF Rx Instructions: subcutaneously SEE NOTES; 34 U in am 12 U in am please dispense quantity sufficient for at least 30 days at a time Discharge Orders: Discharge ED (Routine); Ordered 03/29/22 Ordered By: Darion Capone Referrals: Hermelindo Daugherty MD [Primary Care Provider] - Discharge Diet: Usual diet Discharge Activity: Resume usual activity Patient Instructions: at 19 to 22 Weeks (ED), Opioid Safety, Pain Management Activity Restrictions/Additional Instructions: Follow-up with your OB as needed Coding Level of Care Code ED Manufacturing Engineer Paint for Chg Fwd Exam Comprehensive
[2022-03-29 14:27] LABS: Add Urine Microscopic? YES; Bilirubin Urine Neg (Negative); Blood Urine Neg (Negative); Glucose Urine UA 1+ (Normal); Ketones Urine Negative (Negative); Leukocyte Esterase Urine Negative (Negative); Nitrate Urine Negative (Negative); Protein Urine Neg (Negative); Urine Appearance Hazy (CLEAR); Urine Color Yellow (Yellow); Urobilinogen Urine Norm (Negative); pH Urine 6 (5-7)
[2022-03-29 14:32] LABS: Bacteria Urine 2+ /hpf; Mucus Urine TRACE /hpf; Squamous Epithelial Cell Urine 15-25 /hpf (0-5); WBC Urine 0-4 /hpf (0-5)
[2022-03-29 14:33] LABS: Add Urine Culture? No
== END 2022-03-29 15:27 | disposition home or self-care (01) ==
PROVIDERS: Emergency Provider Student in an Organized Health Care Education/Training Program; PCP Obstetrics & Gynecology
DX: O26.852 Spotting complicating pregnancy, second trimester (principal); Z3A.17 17 weeks gestation of pregnancy; Z87.891 Personal history of nicotine dependence
CPT/HCPCS: 76805; 81001; 99284

== ENCOUNTER → 2022-03-31 08:15 | Outpatient (BNVA) | payer BC, MEDICAID, SELFPAY | PROVIDERS: PCP Obstetrics & Gynecology; Visit Provider Obstetrics & Gynecology | DX: O09.899 Supervision of other high risk pregnancies, unspecified trimester (principal) | CPT/HCPCS: 81000; 87086 ==

== ENCOUNTER → 2022-04-07 09:30 | Outpatient (BNVA) | payer BC, MEDICAID, SELFPAY | PROVIDERS: PCP Obstetrics & Gynecology; Visit Provider Obstetrics & Gynecology | DX: O09.899 Supervision of other high risk pregnancies, unspecified trimester (principal); O24.319 Unspecified pre-existing diabetes mellitus in pregnancy, unspecified trimester; E11.9 Type 2 diabetes mellitus without complications; J44.9 Chronic obstructive pulmonary disease, unspecified; F41.9 Anxiety disorder, unspecified | CPT/HCPCS: 81000 ==

== ENCOUNTER → 2022-04-21 08:30 | Outpatient (BNVA) | payer BC, MEDICAID, SELFPAY | PROVIDERS: PCP Obstetrics & Gynecology; Visit Provider Obstetrics & Gynecology | DX: O09.899 Supervision of other high risk pregnancies, unspecified trimester (principal) | CPT/HCPCS: 81000 ==

== ENCOUNTER → 2022-04-28 08:12 | Outpatient (BNVA) | payer BC, MEDICAID, SELFPAY | PROVIDERS: PCP Obstetrics & Gynecology; Visit Provider Obstetrics & Gynecology | DX: O09.899 Supervision of other high risk pregnancies, unspecified trimester (principal) | CPT/HCPCS: 81000 ==

== ENCOUNTER 2022-05-02 16:00 | Outpatient (CLI) | payer BC, MEDICAID, SELFPAY ==
[2022-05-02 16:00] VITALS: BMI 43.4
[2022-05-02 16:11] VITALS: BP 132/64; PULSE 106
== END 2022-05-02 16:45 | disposition home or self-care (01) ==
LOC: OPOB 16:04 → OBGYN 16:05
PROVIDERS: PCP Obstetrics & Gynecology; Visit Provider Obstetrics & Gynecology
DX: O36.8190 Decreased fetal movements, unspecified trimester, not applicable or unspecified (principal); Z3A.00 Weeks of gestation of pregnancy not specified
CPT/HCPCS: 99211

== ENCOUNTER → 2022-05-05 11:00 | Outpatient (BNVA) | payer BC, MEDICAID, SELFPAY | PROVIDERS: PCP Obstetrics & Gynecology; Visit Provider Obstetrics & Gynecology | DX: O09.899 Supervision of other high risk pregnancies, unspecified trimester (principal); Z3A.00 Weeks of gestation of pregnancy not specified | CPT/HCPCS: 81000 ==

== ENCOUNTER → 2022-05-12 09:56 | Outpatient (BNVA) | payer BC, MEDICAID, SELFPAY | PROVIDERS: PCP Obstetrics & Gynecology; Visit Provider Nurse Practitioner Women's Health | DX: O09.899 Supervision of other high risk pregnancies, unspecified trimester (principal); O24.319 Unspecified pre-existing diabetes mellitus in pregnancy, unspecified trimester; F41.9 Anxiety disorder, unspecified; J44.9 Chronic obstructive pulmonary disease, unspecified | CPT/HCPCS: 81000 ==

== ENCOUNTER → 2022-05-27 12:50 | Outpatient (BNVA) | payer BC, MEDICAID, SELFPAY | PROVIDERS: PCP Obstetrics & Gynecology; Visit Provider Obstetrics & Gynecology | DX: O09.899 Supervision of other high risk pregnancies, unspecified trimester (principal) | CPT/HCPCS: 81000 ==

== ENCOUNTER → 2022-06-02 09:36 | Outpatient (BNVA) | payer BC, MEDICAID, SELFPAY | PROVIDERS: PCP Obstetrics & Gynecology; Visit Provider Obstetrics & Gynecology | DX: O09.899 Supervision of other high risk pregnancies, unspecified trimester (principal); Z3A.00 Weeks of gestation of pregnancy not specified | CPT/HCPCS: 81000 ==

== ENCOUNTER 2022-06-09 10:10 | Outpatient (CLI) | payer BC, MEDICAID, SELFPAY ==
[2022-06-09 10:42] LABS: Hematocrit 38.6 % (37.0-47.0); Hemoglobin 12.4 g/dL (11.5-15.3); Mean Corpuscular HGB Conc 32.1 g/dL (30.0-36.0); Mean Corpuscular Volume 93.5 fl (81-99); Mean Platelet Volume 9.3 fL (7.4-10.4); Platelet Count 283 10^3/cmm (130-400); Red Blood Count 4.13 10^6/uL (4.1-5.3); Red Cell Distribution Width 13.6 % (12.1-15.1); White Blood Count 8.7 10^3/uL (4.0-10.0)
== END 2022-06-09 10:11 | disposition home or self-care (01) ==
LOC: LAB 10:13
PROVIDERS: PCP Obstetrics & Gynecology; Visit Provider Obstetrics & Gynecology
DX: O09.899 Supervision of other high risk pregnancies, unspecified trimester (principal)
CPT/HCPCS: 36415; 81000; 85027

== ENCOUNTER 2022-06-26 14:43 | Outpatient (CLI) | payer BC, MEDICAID, SELFPAY ==
[2022-06-26 14:43] VITALS: BMI 43.9
[2022-06-26 15:04] VITALS: BP 133/75; PULSE 122
[2022-06-26 15:10] VITALS: RESP 17
[2022-06-26 15:34] LABS: Actim Prom Negative
--- NOTE | 2022-06-26 20:45 | PC.NURSE ---
Patient was sent over from Dr Urban's office. Dr Urban reports pt has had a stomach bug and reported that her underwear have been more damp than normal. Orders received for ActimPROM, no monitoring requested. If negative, pt may go home.
--- NOTE | 2022-06-27 10:46 | PC.NURSE ---
Discharged at 1543 on 06/26/22
== END 2022-06-27 10:46 | disposition home or self-care (01) ==
LOC: OPOB 14:50 → OBGYN 14:51
PROVIDERS: PCP Obstetrics & Gynecology; Visit Provider Obstetrics & Gynecology
DX: O26.899 Other specified pregnancy related conditions, unspecified trimester (principal); Z3A.00 Weeks of gestation of pregnancy not specified; N89.8 Other specified noninflammatory disorders of vagina
CPT/HCPCS: 81000; 84112; 87086; 99211

== ENCOUNTER 2022-06-30 15:54 | Outpatient (CLI) | payer BC, MEDICAID, SELFPAY ==
[2022-06-30 17:44] LABS: Alanine Aminotransferase 8 U/L (0-33); Albumin Level 3.1 g/dL (3.5-5.2); Alkaline Phosphatase 98 U/L (35-105); Blood Urea Nitrogen 5 mg/dL (6-20); Calcium 8.6 mg/dL (8.5-10.5); Carbon Dioxide 19 mmol/L (22-29); Chloride 102 mmol/L (98-107); Glomerular Filtration Rate 182.7 mL/min (90-130); Glucose 140 mg/dL (65-115); Osmolality Calculated 282 mOsm/kg (285-295); Sodium 136 mmol/L (136-145); Total Bilirubin 0.2 mg/dL (0.15-1.2); Total Protein 6.1 g/dL (6.6-8.7)
[2022-06-30 17:46] LABS: Anion Gap 18.8 (5-19); Aspartate Amino Transferase 16 U/L (0-32); Potassium 3.8 mmol/L (3.5-5.1)
== END 2022-06-30 15:55 | disposition home or self-care (01) ==
LOC: LAB 15:57
PROVIDERS: Visit Provider Obstetrics & Gynecology
DX: O09.899 Supervision of other high risk pregnancies, unspecified trimester (principal)
CPT/HCPCS: 36415; 80053; 81000; 82570; 84156; 85025

== ENCOUNTER → 2022-07-10 14:20 | Outpatient (BNVA) | payer BC, MEDICAID, SELFPAY | PROVIDERS: Visit Provider Obstetrics & Gynecology | DX: O24.419 Gestational diabetes mellitus in pregnancy, unspecified control (principal); Z3A.00 Weeks of gestation of pregnancy not specified | CPT/HCPCS: 76819 ==

== ENCOUNTER → 2022-07-17 08:36 | Outpatient (BNVA) | payer BC, MEDICAID, SELFPAY | PROVIDERS: Visit Provider Obstetrics & Gynecology | DX: O24.419 Gestational diabetes mellitus in pregnancy, unspecified control (principal); Z3A.00 Weeks of gestation of pregnancy not specified | CPT/HCPCS: 76819; 81000 ==

== ENCOUNTER → 2022-07-21 09:10 | Outpatient (BNVA) | payer BC, MEDICAID, SELFPAY | PROVIDERS: Visit Provider Obstetrics & Gynecology | DX: O16.9 Unspecified maternal hypertension, unspecified trimester (principal); O36.60X0 Maternal care for excessive fetal growth, unspecified trimester, not applicable or unspecified; Z3A.00 Weeks of gestation of pregnancy not specified | CPT/HCPCS: 76819 ==

== ENCOUNTER → 2022-07-24 13:29 | Outpatient (BNVA) | payer BC, MEDICAID, SELFPAY | PROVIDERS: Visit Provider Obstetrics & Gynecology | DX: O09.899 Supervision of other high risk pregnancies, unspecified trimester (principal); Z3A.00 Weeks of gestation of pregnancy not specified | CPT/HCPCS: 81000; 85025 ==

== ENCOUNTER 2022-07-25 07:58 | Outpatient (CLI) | payer BC, MEDICAID, SELFPAY ==
[2022-07-25 08:26] VITALS: BP 171/92; BP 176/93; PULSE 88; PULSE 91
[2022-07-25 08:29] VITALS: BP 157/88; PULSE 98
[2022-07-25 08:37] VITALS: BMI 43.7
[2022-07-25 08:38] VITALS: BP 131/74; PULSE 88; RESP 16
[2022-07-25 08:42] VITALS: BP 141/80; PULSE 93
[2022-07-25 09:01] VITALS: BP 128/77; PULSE 102
[2022-07-25 09:10] LABS: Actim Prom Negative
[2022-07-25 09:35] VITALS: BP 128/77; PULSE 102
== END 2022-07-25 09:36 | disposition home or self-care (01) ==
LOC: OPOB 08:14 → OBGYN 08:16
PROVIDERS: Absent Provider Obstetrics & Gynecology; Visit Provider Obstetrics & Gynecology
DX: O26.899 Other specified pregnancy related conditions, unspecified trimester (principal); Z3A.00 Weeks of gestation of pregnancy not specified; N89.8 Other specified noninflammatory disorders of vagina
CPT/HCPCS: 59025; 83986; 84112; 99211

== ENCOUNTER → 2022-07-28 14:05 | Outpatient (BNVA) | payer BC, MEDICAID, SELFPAY | PROVIDERS: Visit Provider Obstetrics & Gynecology | DX: O36.63X0 Maternal care for excessive fetal growth, third trimester, not applicable or unspecified (principal); Z3A.00 Weeks of gestation of pregnancy not specified | CPT/HCPCS: 76816; 76819 ==

== ENCOUNTER → 2022-07-31 08:49 | Outpatient (BNVA) | payer BC, MEDICAID, SELFPAY | PROVIDERS: Visit Provider Obstetrics & Gynecology | DX: O09.899 Supervision of other high risk pregnancies, unspecified trimester (principal) | CPT/HCPCS: 81000; 87081 ==

== ENCOUNTER → 2022-08-04 08:46 | Outpatient (BNVA) | payer BC, MEDICAID, SELFPAY | PROVIDERS: Visit Provider Obstetrics & Gynecology | DX: O16.3 Unspecified maternal hypertension, third trimester (principal); O24.319 Unspecified pre-existing diabetes mellitus in pregnancy, unspecified trimester; J44.9 Chronic obstructive pulmonary disease, unspecified; E78.00 Pure hypercholesterolemia, unspecified; Z3A.00 Weeks of gestation of pregnancy not specified | CPT/HCPCS: 76819 ==

== ENCOUNTER → 2022-08-07 09:37 | Outpatient (BNVA) | payer BC, MEDICAID, SELFPAY | PROVIDERS: Visit Provider Obstetrics & Gynecology | DX: O16.3 Unspecified maternal hypertension, third trimester (principal); O24.319 Unspecified pre-existing diabetes mellitus in pregnancy, unspecified trimester | CPT/HCPCS: 81000 ==

== ENCOUNTER 2022-08-09 09:53 | Inpatient (IN) | payer BC, MEDICAID, SELFPAY ==
[2022-08-09] VITALS (183 sets, daily range): BP systolic 87–210; BP diastolic 34–111; PULSE 52–111; RESP 17–20; TEMP 36.3–37.2; O2SAT 89–100; BMI 44.4
--- NOTE | 2022-08-09 09:06 | USR_ITS ---
PROCEDURE INFORMATION: Exam: US Biophysical Profile Without Non-Stress Test Exam date and time: 08/09/2022 10:01 AM Age: 36 years old Clinical indication: status abnormalities: ; movements, decreased; Single gestation; Third trimester (=28 weeks 0 days); ; Prior surgery; Surgery date: 6+ months; Surgery type: C section; Additional info: weight, need weight as well TECHNIQUE: Imaging protocol: US biophysical profile without non-stress testing. COMPARISON: US OB BPP wo NST [id number] 08/04/2022 8:49 AM FINDINGS: heart rate: 133 bpm presentation: Cephalic. Placenta: Fundal/posterior/right grade 1 placenta without previa. BIOPHYSICAL PROFILE: breathing movement (BPP): 2 out of 2. body movement (BPP): 2 out of 2. tone (BPP): 0 out of 2. Amniotic fluid (BPP): 2 out of 2. US/US OB lmt w/ BPP wo NST IMPRESSION: Biophysical profile score is 6 out of 8 (previously 8/8 on 08/04/2022).
--- NOTE | 2022-08-09 09:25 | P.HP_ITS ---
Providers/Chief Complaint Admitting Physician: Vitaly Pérez DO Primary METAL FABRICATOR HELPER: Priscila ALEJANDRO Chief Complaint: possible ROM HPI METAL FABRICATOR HELPER History of Present Illness Breonna Hernandez is a 36 year old female G2, P1 with JANETH 09/01/2022 but first trimester ultrasound presently at 36.5 weeks gestation presented to labor and delivery with complaints of spontaneous rupture membranes this morning at 7 AM after urinating and noticing blood on tissue. Patient admits to good movement. Patient states that she was scheduled for induction on 08/14/2022, for trial if baby's weight was less than 4500 g. And if weight was greater than 4500 g patient desires repeat . Patient desires elective sterilization has signed tubal consent 06/09/2022 in the office. Initial nursing exam, cervix 1 cm/thick/-4 vertex presentation. Nitrazine positive, clear fluid noted. EFM?category 1 with contractions every 2 to to 5 minutes. records reviewed patient is type 2 diabetic currently on NovoLog and Levemir. Patient also has gestational hypertension, has been prescribed labetalol 100 mg twice daily but only takes it as she states as needed. Current blood pressure 173/95. Review of Systems Narrative: movement: no Const: Denies: fever(s) or chills Card: Denies: chest pain, palpitations, irregular heart rhythm or syncope Resp: Denies: dyspnea GI: Denies: abdominal pain, nausea or vomiting : Denies: flank pain, dysuria, urinary frequency or urinary urgency Musc: Denies: back pain or extremity swelling Skin/Breast: Denies: rash, pruritus, breast pain, nipple discharge or breast mass Neuro: Denies: headache(s), difficulty walking, dizziness or restless legs Psych: Denies: anxiety, depression or mood swings Endo: Denies: polyuria, tired all the time, cold intolerance or heat intolerance Mahendra/Lymph: Denies: easy bruising, easy bleeding, petechiae or purpura All/Imm: Denies: urticaria Medications/Allergies Home Medications Medication Instructions Recorded Confirmed Last Taken Type prenat.vits,vivian,[id number] 1 tab PO DAILY 01/06/22 08/07/22 05/02/22 06:00 History 1 tab blood sugar diagnostic (Blood #150 ea 01/23/22 08/07/22 Unknown Rx Glucose Test strips) insulin syringe-needle U-100 1 mL #150 ea 01/23/22 08/07/22 Unknown Rx 29 gauge x 1/2 (BD Insulin Syringe) fish oil PO .daily 01/27/22 08/07/22 Unknown History blood-glucose meter (Blood Glucose #1 ea 02/09/22 08/07/22 Unknown Rx Monitoring kit) aspirin 81 mg tablet,delayed 81 mg PO DAILY 04/07/22 08/07/22 Unknown History release (Adult Aspirin Regimen) insulin detemir U-100 100 unit/mL 100 unit SUBCUT DAILY 04/28/22 08/07/22 Unknown History (3 mL) subcutaneous pen nitrofurantoin 100 mg PO DAILY 04/28/22 08/07/22 05/01/22 21:00 History monohydrate/macrocrystals 100 mg 100 mg capsule (Macrobid) insulin aspart U-100 100 unit/mL 5 unit SUBCUT TID 07/10/22 08/07/22 Unknown History (3 mL) subcutaneous pen (Novolog FlexPen U-100 Insulin aspart) insulin detemir U-100 100 unit/mL 100 unit SUBCUT DAILY 07/10/22 08/07/22 Unknown History subcutaneous solution (Levemir U-100 Insulin) labetalol 100 mg tablet 100 mg PO BID Hypertension #60 tabs 07/17/22 08/07/22 Unknown Rx Allergies Allergy/AdvReac Type Severity Reaction Status Date / Time vancomycin Allergy ADR-Itching Verified 08/07/22 10:06 PFS METAL FABRICATOR HELPER PFSH: Medical History Anxiety previously managed with alprazolam. Stopped end of November 2021. COPD (chronic obstructive pulmonary disease) has rescue inhaler Hypercholesteremia No pertinent past medical history neghx: htn,thyroid,dvt/pe PCP: None PCOS (polycystic ovarian syndrome) Type 2 diabetes mellitus was managed with victoza, farxiga and metformin. Has been out of medication since September 2021. Surgical History Hx of section 2008-- FTD ? CPD Hx of colonoscopy (~2019) r/t stomach discomfort; no significant findings Hx of hernia repair (~02/2019) Ventral repair; she feels this has returned Status post carpal tunnel release of both wrists (~08/2018) Family History Grandmother Breast cancer Paternal--dx age unknown Diabetes Maternal and Paternal Heart disease Maternal Hypercholesteremia Paternal and Maternal Hypertension Maternal Mother Diabetes Heart disease Hypercholesteremia Thyroid disease Father Diabetes Stroke Grandfather Diabetes Maternal and paternal Hypercholesteremia Paternal and Maternal Denies family history of Colon cancer Ovarian cancer Uterine cancer Social History Smoking and tobacco status: former smoker (quit 01/09/2022) History History History 2 Term 1 0 Miscarriages/Ectopic 0 Living Children 1 Care JANETH Calculator Estimated Delivery Date Method Current WG Current Estimate 09/01/22 Ultrasound #1 36w 5d Other Estimates 08/08/22 LMP (Certain) 40w 1d Specific Issues/Plans * PRE-GESTATIONAL DM * ANXIETY * COPD * PCOS Vitals/I&O/Wt Last Vital Signs Temp 97.5 F L 08/09/22 09:03 Pulse 93 08/09/22 09:21 BP 174/95 08/09/22 09:21 Physical Exam Narrative: 36-year-old female alert and orient x3 no acute distress Const: COMMON NORMALS: healthy appearing and well nourished HENMT: COMMON NORMALS: normocephalic and dentition normal Chest: COMMONS NORMALS: normal inspection of the chest Resp: COMMON NORMALS: normal respiratory effort and clear to auscultation bilaterally Cardio: COMMON NORMALS: regular rate and regular rhythm Back/Pelvis: COMMON NORMALS: no CVA tenderness OTHER: Pelvic exam?cervix 1 cm / 50%/-3 vertex presentation clear fluid noted nitrazine positive. Extremity: COMMON NORMALS: normal to inspection, no clubbing, cyanosis or edema and no calf tenderness Neuro: COMMON NORMALS: patient oriented x3, CN's II-XII intact bilaterally, moves all extremities and deep tendon reflexes 2+ bilaterally Data 08/09/22 09:32 08/09/22 09:32 A&P Assessment and plan (1) Supervision of other high-risk : (2) Type 2 diabetes mellitus: (3) Hypertension affecting in third trimester: Plan A. 1. 36.5-week IUP with spontaneous rupture membranes 2. Previous due to failure to progress 3. GBS negative 4. Type 2 diabetes (noncompliant with insulin as prescribed) 5. Gestational hypertension (noncompliant with labetalol as prescribed) 6. Desires (if baby less than 4500 g) otherwise desires repeat C- section. P. 1. Admit to labor and delivery for management of labor 2. OB ultrasound for biophysical profile and estimated weight 3. trial if weight less than 4500 g 4. Repeat if estimated weight greater than 4500 g. Attestations Medical Necessity Statement*: High risk patient admitted for management of labor at 36.5 weeks gestation with spontaneous rupture of memb ranes, history of type 2 diabetes and gestational hypertension. Coding Level of Care Code Acute Code for Chg Fwd Diagnoses Supervision of other high-risk O09.899 Type 2 diabetes mellitus E11.9 Hypertension affecting in third trimester O16.3
[2022-08-09 09:52] LABS: Basophils # 0.1 10^3/uL (0.0-0.1); Basophils % 0.6 %; Eosinophils # 0.1 10^3/uL (0.0-0.8); Eosinophils % 0.9 %; Hemoglobin 14.4 g/dL (11.5-15.3); Lymphocytes % 22.6 %; Mean Corpuscular HGB Conc 32.7 g/dL (30.0-36.0); Mean Corpuscular Hemoglobin 28.9 pg (28.0-34.0); Mean Corpuscular Volume 88.2 fl (81-99); Mean Platelet Volume 9.5 fL (7.4-10.4); Monocytes # 0.7 10^3/uL (0.2-0.9); Monocytes % 7.5 %; Neutrophils # 6.02 10^3/uL (1.8-7.7); Neutrophils % 68.1 %; Nucleated Red Blood Cells % 0 %; Platelet Count 300 10^3/cmm (130-400); Red Blood Count 4.99 10^6/uL (4.1-5.3); White Blood Count 8.8 10^3/uL (4.0-10.0)
[2022-08-09 10:13] LABS: Alanine Aminotransferase 8 U/L (0-33); Albumin Level 3.4 g/dL (3.5-5.2); Alkaline Phosphatase 128 U/L (35-105); Anion Gap 14.4 (5-19); Aspartate Amino Transferase 15 U/L (0-32); Blood Urea Nitrogen 7 mg/dL (6-20); Calcium 9.1 mg/dL (8.5-10.5); Carbon Dioxide 20 mmol/L (22-29); Chloride 105 mmol/L (98-107); Globulin 3.4 g/dL (1.3-4.6); Glomerular Filtration Rate 141.2 mL/min (90-130); Glucose 131 mg/dL (65-115); Osmolality Calculated 280 mOsm/kg (285-295); Potassium 4.4 mmol/L (3.5-5.1); Sodium 135 mmol/L (136-145); Total Bilirubin 0.3 mg/dL (0.15-1.2); Total Protein 6.8 g/dL (6.6-8.7)
[2022-08-09 10:19] LABS: Bilirubin Urine Neg (Negative); Blood Urine 3+ (Negative); Glucose Urine UA Norm (Normal); Ketones Urine Negative (Negative); Leukocyte Esterase Urine Negative (Negative); Nitrate Urine Negative (Negative); Protein Urine 1+ (Negative); RBC Urine 50-80 /hpf (0-2); Specific Gravity, Urine 1.015 (1.005-1.030); Urine Appearance SL Hazy (CLEAR); Urine Color Dark Yellow (Yellow); Urobilinogen Urine Norm (Negative); pH Urine 7 (5-7)
[2022-08-09 10:20] LABS: Add Urine Culture? No; Bacteria Urine 1+ /hpf; Squamous Epithelial Cell Urine 15-25 /hpf (0-5); WBC Urine RARE /hpf (0-5)
[2022-08-09 10:31] LABS: Urine Creatinine 48 mg/dL (28-217)
[2022-08-09 10:32] LABS: UPRO/UCREAT Ratio 1.92 mg/mg CR; Urine Protein Random 92 mg/dL
--- NOTE | 2022-08-09 11:23 | P.ANESASSM_ITS ---
Pre-Anesthetic Assessment Height/Weight: Height 1.6 m Weight 113.852 kg Temp Pulse Resp BP 97.3 F L 85 18 132/66 08/09/22 11:04 08/09/22 10:35 08/09/22 09:21 08/09/22 10:35 Preop Diagnosis: NEEMA, possible repeat Familial anesthetic complications: none Was Beta Colton taken within 24 hours: N/A Was Clonidine taken within 24 hours: N/A Social Tobacco Exam alert, oriented x 3, clear to auscultation bilaterally and regular rate & rhythm Airway Submandibular: within normal limits Cervical ROM: within normal limits Mallampati: Class II Dentition: false Comments: Comments: Upper denture History/ROS No significant history except as noted and No significant complaints Pulmonary Chronic Obstructive Pulmonary Disease and Shortness of Breath CV/HEM Hypertension PIH. Non compliant with meds Chronic Renal Failure, Chronic Renal Insufficiency and Kidney Stones Hepatic None reported GI Gastroesophageal Reflux Disease Metabolic Diabetes Mellitus and Morbid Obesity [facility] [place] None reported Neuropsych None reported Anesthetic Plan ASA status: 3 Anesthesia: Anesthesia Evaluation and Regional (specify below) (NEEMA) Risk of > 500 ml blood loss (7ml/kg in children): No Medications/Allergies Home Medications Medication Instructions Recorded Confirmed Last Taken Type prenat.vits,vivian,jwi-tzgv-utsui 1 tab PO DAILY 01/06/22 08/07/22 05/02/22 06:00 History 1 tab blood sugar diagnostic (Blood #150 ea 01/23/22 08/07/22 Unknown Rx Glucose Test strips) insulin syringe-needle U-100 1 mL #150 ea 01/23/22 08/07/22 Unknown Rx 29 gauge x 1/2 (BD Insulin Syringe) fish oil PO .daily 01/27/22 08/07/22 Unknown History blood-glucose meter (Blood Glucose #1 ea 02/09/22 08/07/22 Unknown Rx Monitoring kit) aspirin 81 mg tablet,delayed 81 mg PO DAILY 04/07/22 08/07/22 Unknown History release (Adult Aspirin Regimen) insulin detemir U-100 100 unit/mL 100 unit SUBCUT DAILY 04/28/22 08/07/22 Unknown History (3 mL) subcutaneous pen nitrofurantoin 100 mg PO DAILY 04/28/22 08/07/22 05/01/22 21:00 History monohydrate/macrocrystals 100 mg 100 mg capsule (Macrobid) insulin aspart U-100 100 unit/mL 5 unit SUBCUT TID 07/10/22 08/07/22 Unknown History (3 mL) subcutaneous pen (Novolog FlexPen U-100 Insulin aspart) insulin detemir U-100 100 unit/mL 100 unit SUBCUT DAILY 07/10/22 08/07/22 Unknown History subcutaneous solution (Levemir U-100 Insulin) labetalol 100 mg tablet 100 mg PO BID Hypertension #60 tabs 07/17/22 08/07/22 Unknown Rx Allergies Allergy/AdvReac Type Severity Reaction Status Date / Time vancomycin Allergy ADR-Itching Verified 08/07/22 10:06 [facility] Anesthesia Medical History Anxiety previously managed with alprazolam. Stopped end of November 2021. COPD (chronic obstructive pulmonary disease) has rescue inhaler Hypercholesteremia No pertinent past medical history neghx: htn,thyroid,dvt/pe PCP: None PCOS (polycystic ovarian syndrome) Type 2 diabetes mellitus was managed with victoza, farxiga and metformin. Has been out of medication since September 2021. Surgical History Hx of section 2008-- FTD ? CPD Hx of colonoscopy (~2019) r/t stomach discomfort; no significant findings Hx of hernia repair (~02/2019) Ventral repair; she feels this has returned Status post carpal tunnel release of both wrists (~08/2018) Family History Grandmother Breast cancer Paternal--dx age unknown Diabetes Maternal and Paternal Heart disease Maternal Hypercholesteremia Paternal and Maternal Hypertension Maternal Mother Diabetes Heart disease Hypercholesteremia Thyroid disease Father Diabetes Stroke Grandfather Diabetes Maternal and paternal Hypercholesteremia Paternal and Maternal Denies family history of Colon cancer Ovarian cancer Uterine cancer Social History Smoking and tobacco status: former smoker (quit 01/09/2022) Female Reproductive History : 2 Data Anesthesia 08/09/22 09:32 08/09/22 09:32 Short CBC 08/09/22 Range/Units 09:32 WBC 8.8 (4.0-10.0) 10^3/uL Hgb 14.4 (11.5-15.3) g/dL Hct 44.0 (37.0-47.0) % MCV 88.2 (81-99) fl Plt Count 300 (130-400) 10^3/cmm Neut % (Auto) 68.1 % Neut # (Auto) 6.02 (1.8-7.7) 10^3/uL BMP 08/09/22 09:32 Sodium 135 L Potassium 4.4 Chloride 105 Carbon Dioxide 20 L BUN 7 Creatinine 0.5 Glucose 131 H Calcium 9.1 Liver Function 08/09/22 Range/Units 09:32 Total Bilirubin 0.3 (0.15-1.2) mg/dL AST 15 (0-32) U/L ALT 8 (0-33) U/L Alkaline Phosphatase 128 H (35-105) U/L Albumin 3.4 L (3.5-5.2) g/dL Urine 08/09/22 Range/Units 09:00 Urine Color Dark yellow (Yellow) Urine Appearance Sl hazy A (CLEAR) Urine pH 7 (5-7) Ur Specific [place] 1.015 (1.005-1.030) Urine Protein 1+ H (Negative) Urine Glucose (UA) Norm (Normal) Urine Ketones Negative (Negative) Urine Nitrate Negative (Negative) Urine Bilirubin Neg (Negative) Ur Leukocyte Esterase Negative (Negative) Urine RBC 50-80 H (0-2) /hpf Urine WBC Rare (0-5) /hpf Cardiac Studies: No Data to Display
[2022-08-09] MEDS: hyDROXYzine 25 mg Capsule 50 MG PO (11:46)
[2022-08-09] MEDS: dextrose 5%-lactated ringers 1,000 ML 125 ML IV ×2 (11:46→18:45)
[2022-08-09] MEDS: fentaNYL 50 mcg/mL INJ 2mL IVP ×3 (11:47→16:34)
[2022-08-09] MEDS: acetaminophen 325 mg Tablet 650 MG PO (11:47)
[2022-08-09] MEDS: oxytocin 30 UNIT/500 ML BAG IV (11:52)
[2022-08-09 12:19] LABS: Glucose Point of Care 105 mg/dL (70-110)
[2022-08-09 14:12] LABS: Glucose Point of Care 99 mg/dL (70-110)
[2022-08-09] MEDS: lactated ringers 1,000 ML 999 ML IV ×2 (15:28→19:00)
--- NOTE | 2022-08-09 16:19 | ANES.PROC ---
Documented by User: Misha Duran Jr HEAD OF SALES PROMOTION 08/09/22 16:22 Anesthesia Procedures Procedure/Date: 08/09/22 NEEMA Epidural: Time Out Performed: Yes Consents Signed: Procedure Consent Consent: requested by attending/covering physician and from patient Lumbar Level: L3-L4 Epidural position: sitting Epidural procedure: sterile prep of area, 1% lidocaine to numb the area, 18 g needle, negative for paresthesia passed, neg for paresthesia, test dose given, 1.5% xylocaine 1:200k epi (5cc), 0.2% Ropivacaine bolus ml (5cc and fentanyl 100mcg), placed PCEA, no systemic response, sterile dressing applied and 0.2% Ropiavacaine @ mls/hr (13cc/hhour) Documented by User: Tim Moise 08/10/22 03:22 Anesthesia Procedures Procedure/Date: 08/10/22
[2022-08-09] MEDS: lactated ringers 1,000 ML 500 ML IV (16:34)
--- NOTE | 2022-08-09 16:46 | ANES.PROC ---
Documented by User: Misha Duran Jr, SUSTAINABILITY PROJECT COORDINATOR 08/09/22 16:49 Anesthesia Procedures Procedure/Date: 08/09/22 NEEMA Procedure Narrative: Epidural restarted. prior epi not providing adequate pain relief Epidural: Time Out Performed: Yes Consents Signed: Procedure Consent Consent: from patient, risks and benefits reviewed and patient agrees to proceed Lumbar Level: L2-L3 Epidural position: sitting Epidural procedure: sterile prep of area, 1% lidocaine to numb the area, 18 g needle, neg for paresthesia, test dose given, 1.5% xylocaine 1:200k epi (5cc), 0.2% Ropivacaine bolus ml (5cc), placed PCEA, no systemic response, sterile dressing applied, L.U.D. no apparent complications and 0.2% Ropiavacaine @ mls/hr (13cc/hour) Additional Comments: Pt tolerated well. Restart at 1636 Documented by User: Tim Moise 08/10/22 03:22 Anesthesia Procedures Procedure/Date: 08/10/22
[2022-08-09] MEDS: ondansetron 2 mg/ML SDV 2 mL 4 MG IVP (17:03)
--- NOTE | 2022-08-09 18:55 | P.PN_ITS ---
VIDEO CONTROL OPERATOR Subjective Subjective: Interval history: Patient comfortable after receiving epidural for pain management. Had hypotensive episodes and was treated with ephedra by anesthesia. Several mercedez iables noted but overall reassuring tracing noted. Cervix 4 cm / 90%/-2 vertex. Labor: Station: -3 Amniotic Membrane Status: Ruptured Monitor Mode: Palpation Contraction Pattern: Irregular Status: Category II Vitals/I&O/Wt Last Vital Signs Temp 98.1 F 08/09/22 16:18 Pulse 75 08/09/22 18:53 Resp 20 H 08/09/22 16:34 BP 112/71 08/09/22 18:53 Pulse Ox 100 08/09/22 18:51 O2 Del Method 08/09/22 12:16 08/09/22 08/09/22 08/09/22 06:59 14:59 22:59 Intake Total 5.133 / 5.133 2192.083 / 2197.216 Balance 5.133 / 5.133 2192.083 / 2197.216 Weight last 48 hrs Weight 113.852 kg Data 08/09/22 09:32 08/09/22 09:32 A&P Assessment and plan (1) Supervision of other high-risk : A. 1. 38.2-week IUP with spontaneous rupture of membranes 2. Active labor 3. Hypotensive episode after epidural P. Check blood sugar every 2 hours. (2) Hypertension affecting in third trimester: (3) Pregestational diabetes mellitus, modified White class B: (4) COPD (chronic obstructive pulmonary disease): (5) macrosomia during in second trimester: Attestations Medical Necessity Statement*: Labor management Coding Level of Care Code Acute Code for Chg Fwd Diagnoses Supervision of other high-risk O09.899 Hypertension affecting in third trimester O16.3 Pregestational diabetes mellitus, modified White class B O24.319 COPD (chronic obstructive pulmonary disease) J44.9 macrosomia during in second trimester O36.62X0
[2022-08-09 19:01] LABS: Glucose Point of Care 98 mg/dL (70-110)
--- NOTE | 2022-08-09 19:18 | PM.OBGYPN ---
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 Nursing staff present treating with IV fluid bolus, change in position to left then right side, and oxygen applied. Recovery 150-160s noted. Cervix unchanged 4 cm. Discussed with patient and family present that with heart rate decelerations being very concerning recovery has occurred but if decelerations recur would recommend proceeding with section delivery. All present verbalizes understanding. Anesthesia present, plan reviewed for if decelerations reoccurs. Labor: Station: -3 Amniotic Membrane Status: Ruptured Monitor Mode: Palpation Contraction Pattern: Irregular Status: Category II Vitals/I&O/Wt Last Vital Signs Temp 98.1 F 08/09/22 16:18 Pulse 70 08/09/22 19:16 Resp 20 H 08/09/22 16:34 BP 152/70 08/09/22 19:09 Pulse Ox 100 08/09/22 19:16 O2 Del Method 08/09/22 12:16 08/09/22 08/09/22 08/09/22 06:59 14:59 22:59 Intake Total 5.133 / 5.133 2192.083 / 2197.216 Balance 5.133 / 5.133 2192.083 / 2197.216 Weight last 48 hrs Weight 113.852 kg Data 08/09/22 09:32 08/09/22 09:32 A&P Assessment and plan (1) Supervision of other high-risk : A. Active labor with deceleration x4 minutes, good recovery noted P. Close observation, will proceed with if decelerations recur. Attestations Medical Necessity Statement*: Management of labor Coding Level of Care Code Acute Code for Chg Fwd Diagnoses Supervision of other high-risk O09.899
[2022-08-09 19:39] LABS: Glucose Point of Care 109 mg/dL (70-110)
[2022-08-09 21:29] LABS: Glucose Point of Care 90 mg/dL (70-110)
--- NOTE | 2022-08-09 22:01 | ANES.PROC ---
Documented by User: Misha Duran Jr, CRNA 08/09/22 22:05 Anesthesia Procedures Procedure/Date: 08/09/22 Other Information: Pt C/O breakthrough pain.Remains at 4cm dilated. Lidocaine 1% with Fentanyl 100 mcg given. Pt expressed improvement. Epidural infusion increased to 13cc/hour Documented by User: Tim Moise 08/10/22 03:22 Anesthesia Procedures Procedure/Date: 08/10/22
--- NOTE | 2022-08-09 23:06 | PM.OBGYPN ---
DOCKING PILOT Subjective Subjective: Interval history: Patient doing well feels some vaginal pressure. EFM?category 1 with contractions q. 3 to 7 minutes. Tolerating Pitocin without decelerations. Cervix now 4/70%/-2 vertex. Patient's questions regarding length of induction answered. Labor: Station: -3 Amniotic Membrane Status: Ruptured Monitor Mode: External Contraction Pattern: Irregular Status: Category I Vitals/I&O/Wt Last Vital Signs Temp 99.0 F 08/09/22 21:00 Pulse 86 08/09/22 22:56 Resp 18 08/09/22 21:00 BP 108/55 08/09/22 22:36 Pulse Ox 96 08/09/22 22:56 O2 Del Method 08/09/22 21:00 O2 Flow Rate 0 08/09/22 19:27 08/09/22 08/09/22 08/10/22 14:59 22:59 06:59 Intake Total 5.133 / 5.133 3224.833 / 3229.966 Output Total 300 / 300 Balance 5.133 / 5.133 2924.833 / 2929.966 Weight last 48 hrs Weight 113.852 kg Physical Exam Urinary Catheter Management: Martínez Latex: Cath Placed During This Visit: yes Reason for Continuing Indwelling Catheter: Acute Urinary Retention or Obstruction Urinary Catheter Date of Insertion: 08/09/22 Urinary Catheter Time of Insertion: 17:55 Data 08/09/22 09:32 08/09/22 09:32 A&P Assessment and plan (1) Supervision of other high-risk : A. 38-week IUP requesting trial Spontaneous rupture of membranes Noncompliant with insulin and labetalol Previous Obesity P. Continue present care (2) Hypertension affecting in third trimester: (3) macrosomia during in second trimester: (4) Pregestational diabetes mellitus, modified White class B: (5) Type 2 diabetes mellitus: Attestations Medical Necessity Statement*: Management of labor Coding Level of Care Code Acute Code for Chg Fwd Diagnoses Supervision of other high-risk O09.899 Hypertension affecting in third trimester O16.3 macrosomia during in second trimester O36.62X0 Pregestational diabetes mellitus, modified White class B O24.319 Type 2 diabetes mellitus E11.9
[2022-08-09 23:21] LABS: Glucose Point of Care 115 mg/dL (70-110)
[2022-08-10] VITALS (71 sets, daily range): BP systolic 116–194; BP diastolic 55–116; PULSE 71–113; RESP 16; TEMP 36.2–37.1; O2SAT 89–100
--- NOTE | 2022-08-10 01:34 | P.ANES_ITS ---
Documented by User: Misha Duran Jr, FLIGHT CONTROL SPECIALIST 08/10/22 01:40 Anesthesia Procedures Procedure/Date: 08/10/22 Procedure Narrative: Epidural no longer working. Pain control inadequate. Pt agrees to restart Epidural: Time Out Performed: Yes Consents Signed: Procedure Consent Consent: from patient, risks and benefits reviewed and patient agrees to proceed Lumbar Level: L2-L3 Epidural position: sitting Epidural procedure: sterile prep of area, 1% lidocaine to numb the area, 18 g needle, neg for paresthesia, test dose given, 1.5% xylocaine 1:200k epi (5cc), 0.2% Ropivacaine bolus ml (4cc and Fentanyl 100mcg), placed PCEA, no systemic response, sterile dressing applied, L.U.D. no apparent complications and 0.2% Ropiavacaine @ mls/hr (13cc/hour) Additional Comments: DARLING at 9cm. Pt tolerated well Documented by User: Tim Moise 08/10/22 03:22 Anesthesia Procedures Procedure/Date: 08/10/22
--- NOTE | 2022-08-10 02:14 | P.PN_ITS ---
PRODUCTION RECORDER Subjective Subjective: Interval history: 36-year-old female G2, P1 at 36.6 weeks gestation admitted after spontaneous rupture membranes at home. Patient has been followed 08/09/2022 for KYRIE for . Patient had previous primary section due to failure to progress. Patient has labored through the day and into the early a.m. with an epidural and complains of vaginal pain unrelieved by epidural. The epidural has been replaced and patient continues to complain of the same pain. EFM?several variables noted, good variability Cervix unchanged at 4 cm. Patient requesting to discontinue induction and to proceed with repeat section and tubal sterilization. Risk of bleeding, infection, injury to pelvic organs and failure rate of tubal sterilization has been reviewed. Patient understands that tubal sterilization could result in an ectopic requiring future surgery for resolution if that occurs. She understands the risk of a possible intrauterine being 4-6 per thousand. Patient understands that this procedure is permanent. Labor: Station: -3 Amniotic Membrane Status: Ruptured Monitor Mode: External Contraction Pattern: Irregular Status: Category I Vitals/I&O/Wt Last Vital Signs Temp 98.4 F 08/10/22 01:00 Pulse 98 08/10/22 02:08 Resp 18 08/09/22 21:00 BP 123/60 08/10/22 02:00 Pulse Ox 98 08/10/22 02:08 O2 Del Method 08/09/22 21:00 O2 Flow Rate 0 08/09/22 19:27 08/09/22 08/09/22 08/10/22 14:59 22:59 06:59 Intake Total 5.133 / 5.133 3266.333 / 3271.466 44.5 / 3315.966 Output Total 300 / 300 300 / 600 Balance 5.133 / 5.133 2966.333 / 2971.466 -255.5 / 2715.966 Weight last 48 hrs Weight 113.852 kg Physical Exam Urinary Catheter Management: Martínez Latex: Cath Placed During This Visit: yes Reason for Continuing Indwelling Catheter: Acute Urinary Retention or Obstruction Urinary Catheter Date of Insertion: 08/09/22 Urinary Catheter Time of Insertion: 17:55 Data 08/09/22 09:32 08/09/22 09:32 A&P Assessment and plan (1) Supervision of other high-risk : A. 1. 36-year-old G2, P1 at 36.6 weeks gestation 2. Failure to progress (4 cm) 3. Previous 4. GBS negative 5. Obesity P. 1. Prepare for repeat section with tubal sterilization Risk and benefits have been reviewed for both procedures. (2) Hypertension affecting in third trimester: (3) Pregestational diabetes mellitus, modified White class B: (4) Type 2 diabetes mellitus: Attestations Medical Necessity Statement*: Management of labor and delivery by repeat cesa rean section and tubal sterilization Coding Level of Care Code Acute Code for Chg Fwd Diagnoses Supervision of other high-risk O09.899 Hypertension affecting in third trimester O16.3 Pregestational diabetes mellitus, modified White class B O24.319 Type 2 diabetes mellitus E11.9
[2022-08-10] MEDS: lactated ringers 1,000 ML 999 ML IV (02:15)
[2022-08-10] MEDS: metoclopramide 5 mg/mL SDV 2 mL 10 MG IVP (02:31)
[2022-08-10] MEDS: citric acid-sodium citrate 30 mL UDC PO (02:32)
[2022-08-10] MEDS: famotidine 20 mg/2 mL INJ IVP (02:32)
[2022-08-10] MEDS: ceFAZolin 2,000 MG in sodium chloride 0.9% (plus) 50 ML 100 MG IV (03:02)
[2022-08-10] MEDS: methylergonovine 0.2 mg/mL INJ 1 mL IM (03:55)
--- NOTE | 2022-08-10 03:58 | P.OP_ITS ---
Operative Report Date of procedure: August 10, 2022 Pre-op diagnosis: Preop Diagnosis 36.2 weeks gestation Spontaneous rupture of membranes History of third trimester hypertension (noncompliant with medication) Type 2 diabetes (noncompliant with insulin use) Previous Obesity Post-op diagnosis: Failure to progress Post-op findings: Viable baby girl Normal uterus tubes and ovaries Procedure done: KYRIE with Pitocin Repeat low-transverse section with delivery of a viable baby girl Bilateral tubal ligation (Melany) Specimens removed/disposition: Placenta Bilateral fallopian tube segments Pathology: Specimens above Surgeon: Vitaly Pérez DO Anesthesia: General Estimated blood loss (mL): 500 Urine output: See anesthesia report Complications: None Findings: Viable baby girl 8/9 weight?pending Condition: stable Brief History: 36-year-old female admitted to labor and delivery after rupture of membranes at home at 36.1 weeks gestation. Patient's course indicated second trimester macrosomia. Patient has been having nonstress test and biophysical profiles weekly. Patient desired trial which concluded at 4 cm after 8 hours of no change. Patient requested repeat section at that time. Risk and benefits were reviewed as well as risk of failure and ectopic with tubal sterilization. Procedure: 36-year-old female was delivered by repeat low-transverse section. Patient was taken to surgical suite after team was assembled and prepped and draped for surgical procedure. Epidural level had been tested and found to be inadequate therefore general anesthesia had been explained to patient and family and administered in the OR. A Pfannenstiel incision was made through the skin and extended through the subcu fat to the fascia. The fascia was incised and the incision lateralized. The rectus muscle elevated superior and inferior. The peritoneum was opened bluntly and the bladder blade placed to protect the bladder. A bladder flap was created with Metzenbaums and pickups and displaced with a bladder blade. A low transverse uterine incision was made with a knife and extended laterally. The 's vertex was delivered through the incision atraumatically followed by the anterior posterior shoulder and the remainder of the baby's body. Spontaneous cry was robust at delivery. The umbilical cord was very long with a true knot being noted. The cord was clamped and cut and the baby placed on the warmer. Health Unit Coordinator was in attendance for assessment. Cord blood was obtained and handed off. The placenta was removed manually the uterus exteriorized and wiped clean with a moist lap sponge. The uterine incision was closed with 0 Vicryl in a running interlocking stitch. With good approximation and hemostasis the posterior gutters and sidewalls were wiped clean with a moist lap sponge. Attention was turned to the left fallopian tube which was grasped with a Geoff and a segment clamped with a hemostat suture-ligated x2 with 0 chromic. The tubal segment was transected and the tubal stump cauterized with the Bovie. The same procedure was done on the right fallopian tube. Both segments handed off and will be sent to pathology. Good hemostasis noted the uterus was replaced in the abdomen the peritoneum and rectus muscle approximated with 2-0 Vicryl. The fascia was then closed with 0 Vicryl in a running stitch. The subcu fat approximated with 2-0 Vicryl. The skin approximated with 4-0 Vicryl in a subcuticular manner. The incision cleansed pressure dressing applied. Pitocin solution had been given through the IV and a bolus manner. Uterus and vaginal vault cleared of clots. Patient was transferred to recovery bed and awaken by anesthesia in stable and satisfactory condition. Needle instrument sponge counts correct x2
[2022-08-10] MEDS: labetalol 5 mg/mL SDV 20mL 20 MG IVP (04:42)
[2022-08-10] MEDS: labetalol 5 mg/mL SDV 20mL 40 MG IVP (05:03)
[2022-08-10] MEDS: magnesium sulfate premix 4 GM/100 ML PREMIX IV (05:32)
[2022-08-10] MEDS: magnesium sulfate premix 20 GM/500 ML BAG IV (05:53)
[2022-08-10 06:38] LABS: Glucose Fasting 157 mg/dL (74-109)
[2022-08-10 07:15] LABS: Glucose Point of Care 151 mg/dL (70-110)
[2022-08-10 07:15] LABS: Glucose Point of Care 115 mg/dL (70-110)
--- NOTE | 2022-08-10 07:26 | PC.NURSE ---
0355 Methergine was ordered to be given to patient, due to moderate vaginal bleeding as the patient was transferred to the floor bed from the OR table. It was stated that patient has a history of gestational hypertension and her blood pressures during the transfer were in the 160s/90s. Dr. Pérez verbalized understanding and ordered IM methergine to be given. Methergine given, and Dr. Pérez alerted about the increasing blood pressures. Dr. Pérez verbalize understanding, ordered hypertensive protocol then Magnesium therapy to be started.
[2022-08-10 09:24] LABS: Glucose Point of Care 160 mg/dL (70-110)
[2022-08-10] MEDS: insulin lispro 100 unit/1 mL SUBCUT ×3 (09:45→23:21)
[2022-08-10] MEDS: ketorolac 30 mg/mL INJ IVP ×3 (10:45→22:09)
[2022-08-10] MEDS: prenatal vitamin Capsule 1 CAP PO (10:46)
[2022-08-10] MEDS: docusate sodium 100 mg Capsule PO ×2 (10:46→17:49)
[2022-08-10 13:29] LABS: Glucose Point of Care 171 mg/dL (70-110)
[2022-08-10 15:43] LABS: Hematocrit 34.7 % (37.0-47.0); Hemoglobin 11.4 g/dL (11.5-15.3); Mean Corpuscular HGB Conc 32.9 g/dL (30.0-36.0); Mean Corpuscular Hemoglobin 28.9 pg (28.0-34.0); Mean Corpuscular Volume 87.8 fl (81-99); Mean Platelet Volume 10.1 fL (7.4-10.4); Platelet Count 245 10^3/cmm (130-400); Red Blood Count 3.95 10^6/uL (4.1-5.3); Red Cell Distribution Width 12.9 % (12.1-15.1); White Blood Count 15.8 10^3/uL (4.0-10.0)
[2022-08-10] MEDS: lactated ringers 1,000 ML 125 ML IV (16:08)
[2022-08-10] MEDS: lanolin oint 7 gm 1 APPLIC TOPICAL (17:49)
[2022-08-10] MEDS: simethicone 80 mg Chew PO (20:40)
[2022-08-10] MEDS: ferrous sulfate EC 325 mg Tablet PO (20:40)
--- NOTE | 2022-08-10 22:15 | P.PN_ITS ---
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 for failed . Patient denies headaches blurred vision chest pain or shortness of breath she denies any incisional pain at this time. Post patient had elevated blood pressures, hypertensive medication protocols were not decreasing her blood pressure therefore patient was started on magnesium sulfate 4 g bolus 2 g maintenance for 12 hours. Patient had mild diuresis and blood pressure is decreased to normal range. Currently 139/76. Patient is ambulating tolerating regular diet, voiding, and has had a spontaneous stool. Abdomen?soft, fundus firm, incision clean dry and intact. Extremities?no edema Labor: Station: -3 Amniotic Membrane Status: Ruptured Monitor Mode: External Contraction Pattern: Irregular Status: Category I Vitals/I&O/Wt Last Vital Signs Temp 97.2 F L 08/10/22 22:09 Pulse 77 08/10/22 22:09 Resp 16 08/10/22 04:30 BP 139/76 08/10/22 22:09 Pulse Ox 97 08/10/22 06:30 O2 Del Method 08/10/22 06:30 O2 Flow Rate 0 08/09/22 19:27 08/10/22 08/10/22 08/10/22 06:59 14:59 22:59 Intake Total 2323.75 / 5903.549 289.167 / 289.167 208.367 / 497.534 Output Total 450 / 750 490 / 490 80 / 570 Balance 1873.75 / 5153.549 -200.833 / -200.833 128.367 / -72.466 Weight last 48 hrs Weight 113.852 kg Physical Exam Urinary Catheter Management: Martínez Latex: Cath Placed During This Visit: yes, but has since been removed by the nurse Reason for Continuing Indwelling Catheter: Decision to DC Catheter Urinary Catheter Date of Insertion: 08/09/22 Urinary Catheter Time of Insertion: 17:55 Date Urinary Catheter Removed: 08/10/22 Time Urinary Catheter Discontinued: 16:45 Data 08/10/22 15:22 08/09/22 09:32 A&P Assessment and plan (1) Supervision of other high-risk : A. 1. S/p repeat low transverse section with bilateral tubal sterilization 2. Postoperative hypertension?treated with magnesium sulfate 3. Type 2 diabetes (patient noncompliant with home meds?insulin) Currently using sliding scale. P. Continue present care, will continue to check blood sugars and blood pressures. Attestations Medical Necessity Statement*: Management of labor, delivery and postoperative care Coding Level of Care Code Acute Code for Chg Fwd Diagnoses Supervision of other high-risk O09.899
[2022-08-11] VITALS (11 sets, daily range): BP systolic 126–172; BP diastolic 67–81; PULSE 61–83; RESP 17; TEMP 36.1–36.6
[2022-08-11 01:35] LABS: Glucose Point of Care 172 mg/dL (70-110)
[2022-08-11] MEDS: HYDROcodone-acetaminophen 10-325 mg Tablet PO ×3 (05:17→21:41)
[2022-08-11 06:01] LABS: Glucose Fasting 136 mg/dL (74-109)
[2022-08-11 07:49] LABS: Glucose Point of Care 156 mg/dL (70-110)
[2022-08-11] MEDS: insulin lispro 100 unit/1 mL SUBCUT ×4 (07:53→21:42)
[2022-08-11] MEDS: prenatal vitamin Capsule 1 CAP PO (07:54)
--- NOTE | 2022-08-11 08:35 | PM.OBGYPN ---
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 Patient is doing well without complaints. Patient is ambulating, tolerating regular diet, voiding and has had a stool. She states her bleeding has been very light, she did complain of heavy bleeding after getting up early this a.m. to go to the restroom. But she denies headaches, dizziness shortness of breath or dizziness or chest pain. Patient had third trimester hypertension, but blood pressures have been normal since after treatment with magnesium sulfate after recovery. She is required no hypertensive medications. Patient also has history of pregestational diabetes (modified White class B) fasting blood sugar this morning 135 and has been treated with regular insulin per sliding scale. Patient is encouraged to continue her insulin as prescribed and also to continue her blood sugar monitoring at home. Patient has not been compliant with either even though she understands the severity of diabetes. She states her aunts were diabetics with severe health issues and early . She also states her mother is diabetic and has had open heart surgery and other complications due to diabetes. Therefore I stressed to her compliance. We also discussed low impact exercise after her 6-week recovery. Healthy diet and increase fluids have been encouraged. Patient encouraged to continue her vitamins and iron. Patient is breast-feeding and pumping without difficulty. VSS, afebrile Abdomen?soft, fundus firm. Bandage removed incision clean dry and intact. Extremities?no edema, negative Homans' sign. Lochia light. Labor: Station: -3 Amniotic Membrane Status: Ruptured Monitor Mode: External Contraction Pattern: Irregular Status: Category I Vitals/I&O/Wt Last Vital Signs Temp 97.5 F L 08/11/22 05:18 Pulse 76 08/11/22 05:18 Resp 16 08/10/22 04:30 BP 135/70 08/11/22 05:18 Pulse Ox 97 08/10/22 06:30 O2 Del Method 08/10/22 06:30 O2 Flow Rate 0 08/09/22 19:27 08/10/22 08/11/22 08/11/22 22:59 06:59 14:59 Intake Total 208.367 / 497.534 Output Total 180 / 670 Balance 28.367 / -172.466 Weight last 48 hrs Weight 113.852 kg Physical Exam Urinary Catheter Management: Martínez Latex: Cath Placed During This Visit: yes, but has since been removed by the nurse Reason for Continuing Indwelling Catheter: Decision to DC Catheter Urinary Catheter Date of Insertion: 08/09/22 Urinary Catheter Time of Insertion: 17:55 Date Urinary Catheter Removed: 08/10/22 Time Urinary Catheter Discontinued: 16:45 Data 08/10/22 15:22 08/09/22 09:32 A&P Assessment and plan (1) Supervision of other high-risk : Plan A. 1. S/p repeat low transverse section (viable female) with tubal sterilization 2. S/p failed (failure to progress past 4 cm) 3. Pregestational diabetes (modified White classification B)?noncompliant with medication 4. Hypertension in third trimester of ?resolving 5. History of anxiety 6. History of COPD 7. History of PCOS P. 1. Continue postoperative care. Attestations Medical Necessity Statement*: Management of labor, postop care. Coding Level of Care Code Acute Code for Chg Fwd Diagnoses Supervision of other high-risk O09.899
[2022-08-11] MEDS: ibuprofen 800 mg tablet PO ×2 (16:13→21:41)
[2022-08-11 21:35] LABS: Glucose Point of Care 160 mg/dL (70-110)
[2022-08-11] MEDS: docusate sodium 100 mg Capsule PO (21:42)
[2022-08-12 00:14] VITALS: BP 147/72; PULSE 59
[2022-08-12 04:12] VITALS: TEMP 36.1
[2022-08-12 04:13] VITALS: BP 125/67; PULSE 66; TEMP 36.1
[2022-08-12 04:23] LABS: Glucose Point of Care 158 mg/dL (70-110)
[2022-08-12 04:23] LABS: Glucose Point of Care 165 mg/dL (70-110)
[2022-08-12] MEDS: prenatal vitamin Capsule 1 CAP PO (08:24)
[2022-08-12] MEDS: ibuprofen 800 mg tablet PO (08:24)
[2022-08-12 10:34] VITALS: BP 162/86; PULSE 86
[2022-08-12 10:35] VITALS: TEMP 36.9
[2022-08-12 12:11] LABS: Glucose Point of Care 112 mg/dL (70-110)
[2022-08-12 12:11] LABS: Glucose Point of Care 106 mg/dL (70-110)
--- NOTE | 2022-08-12 14:23 | P.DS_ITS ---
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 Hernandez is a 36 year old established patient with an LMP of 11/01/2021, JANETH 09/01/2022 based on first trimester ultrasound placing her at 36- 5/7weeks. Came to labor and delivery with premature rupture of membranes. had been complicated with diabetes and hypertension. She has slow progression of labor and had an arrest of labor and a delivery was performed. Postop observation was uneventful. Tolerating diet well. Ambulating without difficulty. Glucose under control. Pressure borderline. She was counseled regarding pelvic rest for 6 weeks (no sex, no tampons, no vaginal douches). Return to the emergency room if any fever, increased bleeding or pain. Information Peripartum Data: Delivery Method: Physical Exam Narrative: GA; alert and oriented x 3 HEENT: normal Breasts: engorged Nipples - skin intact Lungs; clear to auscultation Heart: regular rhythm, no murmurs. Abd: Appropriately tender. BS+. Uterine fundus below umbilicus. No Fundal Tenderness. Incision clean and dry, no redness, pain or edema. Perineum: normal lochia. Extremities: no edema, no cyanosis, no tenderness. Urinary Catheter Management: Martínez Latex: Cath Placed During This Visit: yes, but has since been removed by the nurse Reason for Continuing Indwelling Catheter: Decision to DC Catheter Urinary Catheter Date of Insertion: 08/09/22 Urinary Catheter Time of Insertion: 17:55 Date Urinary Catheter Removed: 08/10/22 Time Urinary Catheter Discontinued: 16:45 History History History 2 Term 1 0 Miscarriages/Ectopic 0 Living Children 1 Discharge Data Studies Completed and Pending Completed Studies During Hospitalization Category Date Time Status Pathology: Surgical [PTH] Routine Pth 08/10/22 06:07 Completed US OB lmt w/ BPP wo NST Stat Ultrasound 08/09/22 09:06 Completed Pending at discharge Category Date Time Status Glucose Fasting AM LABS Lab 08/13/22 04:00 Ordered Radiology Impressions Obstetrics US/Biophysical Profile 08/09/22 09:06 IMPRESSION: Biophysical profile score is 6 out of 8 (previously 8/8 on 08/04/2022). ADDENDUM: 08/09/22 1218 THIS REPORT CONTAINS FINDINGS THAT MAY BE CRITICAL TO PATIENT CARE. The findings were verbally communicated by me to Dr. Paula Pérez via telephone conference at 12:16 PM CDT on 08/09/2022. The findings were acknowledged and understood. Laboratory Results WBC 15.8 10^3/uL (4.0-10.0) H 08/10/22 15:22 RBC 3.95 10^6/uL (4.1-5.3) L 08/10/22 15:22 Hgb 11.4 g/dL (11.5-15.3) L 08/10/22 15:22 Hct 34.7 % (37.0-47.0) L 08/10/22 15:22 MCV 87.8 fl (81-99) 08/10/22 15:22 MCH 28.9 pg (28.0-34.0) 08/10/22 15:22 MCHC 32.9 g/dL (30.0-36.0) 08/10/22 15:22 RDW 12.9 % (12.1-15.1) 08/10/22 15:22 Plt Count 245 10^3/cmm (130-400) 08/10/22 15:22 MPV 10.1 fL (7.4-10.4) 08/10/22 15:22 Neut % (Auto) 68.1 % 08/09/22 09:32 Lymph % (Auto) 22.6 % 08/09/22 09:32 Gillespie % (Auto) 7.5 % 08/09/22 09:32 Eos % (Auto) 0.9 % 08/09/22 09:32 Baso % (Auto) 0.6 % 08/09/22 09:32 Neut # (Auto) 6.02 10^3/uL (1.8-7.7) 08/09/22 09:32 Lymph # (Auto) 2.0 10^3/uL (0.8-4.8) 08/09/22 09:32 Gillespie # (Auto) 0.7 10^3/uL (0.2-0.9) 08/09/22 09:32 Eos # (Auto) 0.1 10^3/uL (0.0-0.8) 08/09/22 09:32 Baso # (Auto) 0.1 10^3/uL (0.0-0.1) 08/09/22 09:32 Nucleated RBC % (auto) 0 % 08/09/22 09:32 Nucleated RBCs # 0.0 /100WBC 08/09/22 09:32 Sodium 135 mmol/L (136-145) L 08/09/22 09:32 Potassium 4.4 mmol/L (3.5-5.1) 08/09/22 09:32 Chloride 105 mmol/L (98-107) 08/09/22 09:32 Carbon Dioxide 20 mmol/L (22-29) L 08/09/22 09:32 Anion Gap 14.4 (5-19) 08/09/22 09:32 BUN 7 mg/dL (6-20) 08/09/22 09:32 Creatinine 0.5 mg/dL (0.5-0.9) 08/09/22 09:32 GFR Calculation 141.2 mL/min (90-130) H 08/09/22 09:32 Glucose 131 mg/dL (65-115) H 08/09/22 09:32 POC Glucose 112 mg/dL (70-110) H 08/12/22 11:56 Fasting Glucose 136 mg/dL (74-109) H 08/11/22 05:20 Calculated Osmolality 280 mOsm/kg (285-295) L 08/09/22 09:32 Calcium 9.1 mg/dL (8.5-10.5) 08/09/22 09:32 Magnesium 4.0 mg/dL (5.0-7.5) L* 08/10/22 15:22 Total Bilirubin 0.3 mg/dL (0.15-1.2) 08/09/22 09:32 AST 15 U/L (0-32) 08/09/22 09:32 ALT 8 U/L (0-33) 08/09/22 09:32 Alkaline Phosphatase 128 U/L (35-105) H 08/09/22 09:32 Total Protein 6.8 g/dL (6.6-8.7) 08/09/22 09:32 Albumin 3.4 g/dL (3.5-5.2) L 08/09/22 09:32 Globulin 3.4 g/dL (1.3-4.6) 08/09/22 09:32 Urine Color Dark yellow (Yellow) 08/09/22 09:00 Urine Appearance Sl hazy (CLEAR) A 08/09/22 09:00 Urine pH 7 (5-7) 08/09/22 09:00 Ur Specific [place] 1.015 (1.005-1.030) 08/09/22 09:00 Urine Protein 1+ (Negative) H 08/09/22 09:00 Urine Glucose (UA) Norm (Normal) 08/09/22 09:00 Urine Ketones Negative (Negative) 08/09/22 09:00 Urine Blood 3+ (Negative) H 08/09/22 09:00 Urine Nitrate Negative (Negative) 08/09/22 09:00 Urine Bilirubin Neg (Negative) 08/09/22 09:00 Urine Urobilinogen Norm mg/dL (Negative) 08/09/22 09:00 Ur Leukocyte Esterase Negative (Negative) 08/09/22 09:00 Urine RBC 50-80 /hpf (0-2) H 08/09/22 09:00 Urine WBC Rare /hpf (0-5) 08/09/22 09:00 Ur Squamous Epith Cells 15-25 /hpf (0-5) H 08/09/22 09:00 Amorphous Sediment Not Reportable 08/09/22 09:00 Urine Bacteria 1+ /hpf (NONE) H 08/09/22 09:00 U Random Total Protein 92 mg/dL 08/09/22 09:00 Urine Creatinine 48 mg/dL (28-217) 08/09/22 09:00 Protein/Creatinin Ratio 1.92 mg/mg CR 08/09/22 09:00 Blood Type O Positive 08/09/22 09:32 Rho(D) Type Positive 08/09/22 09:32 Antibody Screen Negative 08/09/22 09:32 Vitals Last Vital Signs Temp 98.4 F 08/12/22 10:35 Pulse 86 08/12/22 10:34 Resp 17 08/11/22 20:08 BP 162/86 08/12/22 10:34 Pulse Ox 97 08/10/22 06:30 O2 Del Method 08/10/22 06:30 O2 Flow Rate 0 08/09/22 19:27 Discharge Plan Discharge Patient Disposition: Home Condition: Stable Prescriptions: New ibuprofen 800 mg tablet 800 mg PO TID PRN (Reason: pain) Qty: 60 0RF acetaminophen 325 mg capsule 325 mg PO Q4H PRN (Reason: fever or pain) Qty: 60 0RF hydrocodone-acetaminophen 5-325 mg tablet 1 tab PO Q4H PRN (Reason: pain) Qty: 20 0RF Continued prenat.vits,vivian,lak-kfhz-nayzi Tablet 1 tab PO DAILY (DME) insulin syringe-needle U-100 [BD Insulin Syringe] 1 mL 29 gauge x 1/2 syringe See Rx Instructions .Route Qty: 150 5RF Rx Instructions: As directed (DME) Blood Glucose Test Strip See Rx Instructions .Route Qty: 150 5RF Rx Instructions: four times per day (DME) blood-glucose meter [Blood Glucose Monitoring] Kit See Rx Instructions .Route Qty: 1 0RF Rx Instructions: As directed fish oil 1,200 mg 1 100 ml PO .daily aspirin [Adult Aspirin Regimen] 81 mg tablet,delayed release (DR/EC) 81 mg PO DAILY insulin detemir U-100 100 unit/mL (3 mL) insulin pen 100 unit SUBCUT DAILY Rx Instructions: 35 U in am 40 U in pm. states she has not started insulin aspart U-100 [Novolog FlexPen U-100 Insulin] 100 unit/mL (3 mL) insulin pen 5 unit SUBCUT TID Label Comments: Patient stated she takes 3-5 units at every meal. Levemir U-100 Insulin 100 unit/mL solution 100 unit SUBCUT DAILY Label Comments: Patient states she takes 22 units in AM and 14 units PM labetalol 100 mg tablet 100 mg PO BID Qty: 60 0RF Discharge Orders: Discharge Order (Routine); Ordered 08/12/22 Ordered By: Hermelindo Daugherty Patient Instructions: Type 2 Diabetes, Acetaminophen (By mouth), Ibuprofen (By mouth), Depression (GEN), Bleeding (GEN), Preeclampsia and Eclampsia After Delivery (GEN), Complications of Infection (GEN), OB C, OB Discharge Report, OB Food/Drug Interaction Guide, OB Care at Home, Opioid Safety, Abnormal Bleeding Activity Restrictions/Additional Instructions: 1. Please call [facility] on next working day to make your post-operative appointment in 2 weeks. 2. Please stay home until you come back to the clinic on first post-operative check up. 3. Please follow instructions on your medications CAREFULLY. 4. If you have abdominal incision, do not cover it unless dressing is necessary because of drainage. OK to shower, but avoid bath. Leave steri-strips until they fall off. If they are still on one week after surgery, you may remove them. 5. If you had vaginal surgery or vaginal repair, Dr. Daugherty may instruct you to take SITZ bath. 6. Yellow, blood tinged odorous vaginal discharge is usually normal after hysterectomy or vaginal surgeries. 7. No sexual intercourse, tampons, or douches until you are completely released from the post-operative care. 8. Avoid constipation by eating right and maybe using some Metamucil or Milk of Magnesia. 9. All prescription refills are given during the working hours. Please do no wait till it runs out. Call the clinic at [phone] before your medication runs out. The clinic will get in touch with your doctor to prescribe medications if necessary. 10. Please remain within 40 mile radius from our hospital because emergencies do happen now and then during the post-operative period. 11. If you have stairs at home, take one step at a time slowly and minimize the number of trips. It helps to stay in one floor for the next few days. No lifting except what you can lift by one hand until you are released from the post-operative care. 12. Driving is discouraged until you are well healed. It may be 3-4 weeks before you feel strong enough to drive. You should be able to turn and look through the rear window without pain and you should be able to push the brake p edal very hard without pain before you drive. No fast rules, but SAFETY should be your primary concern. DO NOT drive if you are on sedating medications such as narcotics. 13. Call the clinic (during working hours) to make urgent appointment or go to the Emergency room, if any of the following occurs: i. Vaginal bleeding becomes heavy, more than a period. ii. Incision becomes red and sore, or drains pus. iii. Your temperature is over 100.4 or you have chill. iv. IV site becomes red and swollen (a little ``knot?? is usually OK) v. Persistent nausea and vomiting vi. Persistent constipation or diarrhea vii. Rash or allergic reaction to medications. 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
[2022-08-12 15:00] VITALS: BP 137/82; PULSE 77; RESP 16; TEMP 36.8
== END 2022-08-12 15:14 | disposition home or self-care (01) | DRG 783 ==
LOC: OPOB 09:54 → OBGYN 09:54
PROVIDERS: Admitting Provider Obstetrics & Gynecology; Visit Provider Obstetrics & Gynecology
PROC: 10D00Z1 Extraction of Products of Conception, Low, Open Approach (ICD-10-PCS; CPT 59514; principal; 2022-08-10 02:40)
DX: O42.013 Preterm premature rupture of membranes, onset of labor within 24 hours of rupture, third trimester (principal); O24.12 Pre-existing type 2 diabetes mellitus, in childbirth; O34.211 Maternal care for low transverse scar from previous cesarean delivery; O13.4 Gestational [pregnancy-induced] hypertension without significant proteinuria, complicating childbirth; O99.52 Diseases of the respiratory system complicating childbirth; J44.9 Chronic obstructive pulmonary disease, unspecified; O99.214 Obesity complicating childbirth; E66.9 Obesity, unspecified; O69.2XX0 Labor and delivery complicated by other cord entanglement, with compression, not applicable or unspecified; O62.1 Secondary uterine inertia; O76 Abnormality in fetal heart rate and rhythm complicating labor and delivery; I95.2 Hypotension due to drugs; T41.3X5A Adverse effect of local anesthetics, initial encounter; O90.89 Other complications of the puerperium, not elsewhere classified; I97.3 Postprocedural hypertension; Y83.8 Other surgical procedures as the cause of abnormal reaction of the patient, or of later complication, without mention of misadventure at the time of the procedure; Y92.239 Unspecified place in hospital as the place of occurrence of the external cause; Z37.0 Single live birth; Z3A.36 36 weeks gestation of pregnancy; Z79.4 Long term (current) use of insulin; Z30.2 Encounter for sterilization; Z87.891 Personal history of nicotine dependence; Z91.14 Patient's other noncompliance with medication regimen; Z86.59 Personal history of other mental and behavioral disorders
CPT/HCPCS: 12345; 36415; 36416; 51702; 59025; 59409; 76815; 76819; 80053; 81001; 82570; 82947; 82962; 83735; 83986; 84156; 85025; 85027; 86850; 86900; 88302; 88307; 96372; 96374; 96376; 99211; J0690; J1100; J1815; J1885; J2210; J2274; J2405; J2590; J2765; J2795; J3010; J3475; J3490; J3535; J7120; J7121

== ENCOUNTER 2024-02-16 09:11 | Emergency (ER) | payer MEDICAID, SELFPAY ==
[2024-02-16] VITALS (26 sets, daily range): BP systolic 124–155; BP diastolic 66–99; PULSE 70–96; RESP 13–30; TEMP 37.2; O2SAT 95–100; BMI 41.4
--- NOTE | 2024-02-16 09:13 | XRR_ITS ---
PROCEDURE INFORMATION: Exam: XR Chest Exam date and time: 02/16/2024 9:20 AM Age: 38 years old Clinical indication: Cough and dyspnea; Patient HX: Dizzy; Additional info: Dyspnea/cough TECHNIQUE: Imaging protocol: Radiologic exam of the chest. Views: 1 view. COMPARISON: CR XR chest 1V portable [id number] 11/06/2021 12:45 AM FINDINGS: Lungs: Unremarkable. No consolidation or mass. Pleural spaces: Unremarkable. No pleural effusion. No pneumothorax. Heart/Mediastinum: Unremarkable. No cardiomegaly. Bones/joints: Unremarkable. XR/XR chest 1V portable [id number] IMPRESSION: No acute findings.
--- NOTE | 2024-02-16 09:15 | ECG_ITS ---
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 Measurements Intervals [place] Rate: 87 P: 49 TN: 191 QRS: 27 QRSD: 98 T: 41 QT: 351 QTc: 423 Interpretive Statements SINUS RHYTHM LOW QRS VOLTAGE IN PRECORDIAL LEADS [QRS DEFLECTION < 1.0 mV IN CHEST LEADS] POSSIBLE RIGHT VENTRICULAR CONDUCTION DELAY [RSR (QR) IN V1/V2] Compared to ECG 01/06/2022 00:04:52 No significant changes Electronically Signed On 02-16-2024 23:03:40 CDT by Aaron Rollins M.D. [id number]
--- NOTE | 2024-02-16 09:32 | W.ED.DIZZY ---
HPI - Dizziness General: Chief Complaint: Dizziness Stated Complaint: dizzy Time Seen by Provider: 02/16/24 09:12 History of Present Illness: HPI Narrative: 38-year-old female presents emergency room with sudden onset dizziness beginning this morning. She is very nauseous with it. She can get it to go away by holding very still. No head trauma. No other injury no ear pain or drainage no tinnitus. Associated symptoms: Denies chest pain or chills Related Data Home Medications Medication Instructions Recorded Confirmed alprazolam 0.25 mg tablet 12.5 mg PO PRN PRN Anxiety 02/16/24 02/16/24 Previous Rx's Medication Instructions Recorded blood sugar diagnostic (Blood #150 ea 01/23/22 Glucose Test strips) blood-glucose meter (Blood Glucose #1 ea 02/09/22 Monitoring kit) ibuprofen 800 mg tablet 800 mg PO TID PRN pain #60 tabs 08/12/22 meclizine 25 mg tablet 25 mg PO QID PRN dizziness #20 tabs 02/16/24 Allergies Allergy/AdvReac Type Severity Reaction Status Date / Time vancomycin Allergy ADR-Itching Verified 09/22/22 10:53 Review of Systems Const: Denies: fever(s) or chills Card: Denies: chest pain Resp: Denies: dyspnea GI: Denies: abdominal pain : Denies: dysuria, urinary frequency or urinary urgency Musc: Denies: neck pain or back pain Skin/Breast: Denies: rash Neuro: Reports: vertigo [facility] ED PFSH: Medical History COPD (chronic obstructive pulmonary disease) has rescue inhaler No pertinent past medical history neghx: htn,thyroid,dvt/pe PCP: None Type 2 diabetes mellitus was managed with victoza, farxiga and metformin. Has been out of medication since September 2021. PCOS (polycystic ovarian syndrome) Hypercholesteremia Anxiety previously managed with alprazolam. Stopped end of November 2021. Surgical History Status post carpal tunnel release of both wrists (~08/2018) Hx of section 2008-- FTD ? CPD Hx of hernia repair (~02/2019) Ventral repair; she feels this has returned Hx of colonoscopy (~2019) r/t stomach discomfort; no significant findings Family History Grandmother Breast cancer Paternal--dx age unknown Diabetes Maternal and Paternal Heart disease Maternal Hypercholesteremia Paternal and Maternal Hypertension Maternal Mother Diabetes Heart disease Hypercholesteremia Thyroid disease Father Diabetes Stroke Grandfather Diabetes Maternal and paternal Hypercholesteremia Paternal and Maternal Denies family history of Colon cancer Ovarian cancer Uterine cancer Social History Smoking and tobacco/nicotine status: former use of tobacco/nicotine (quit 01/09/2022) Physical Exam Const: COMMON NORMALS: no acute distress GENERAL APPEARANCE: cooperative and comfortable ORIENTATION/CONSCIOUSNESS: Yes awake, Yes oriented to person, Yes oriented to place and Yes oriented to time HENMT: COMMON NORMALS: normocephalic, atraumatic, hearing grossly normal bilaterally, external ears normal, EAC's normal, TM's normal bilaterally and Normal nasal mucous membranes and turbinates present HEAD & SCALP: normocephalic and atraumatic NOSE: Normal nasal mucous membranes and turbinates present EXTERNAL EAR: Yes external ears normal EXTERNAL AUDITORY CANAL: EAC's normal TYMPANIC MEMBRANE: TM's normal bilaterally Eye: COMMON NORMALS: Equal, round and reactive pupils present, EOMs intact bilaterally, conjunctivae normal and no scleral icterus CONJUNCTIVA: Yes conjunctivae normal PUPIL: Yes Equal, round and reactive pupils present Neck/C-Spine: COMMON NORMALS: full ROM, no lymphadenopathy, supple and no JVD Resp: COMMON NORMALS: normal respiratory effort, No retractions, No use of accessory muscles and clear to auscultation bilaterally AUSCULTATION: clear to auscultation bilaterally Cardio: COMMON NORMALS: no JVD, regular rate, regular rhythm and No murmurs present (Cardio) RATE: regular rate RHYTHM: regular rhythm GI: COMMON NORMALS: Soft to palpation and No hepatosplenomegaly present AUSCULTATION: Yes normoactive bowel sounds PALPATION: Yes Soft to palpation, No Tenderness to palpation present (GI), No Guarding due to palpation present (GI) and Yes No hepatosplenomegaly present Extremity: COMMON NORMALS: normal to inspection, capillary refill normal, no clubbing, cyanosis or edema, no calf tenderness and no pedal edema Neuro: SENSORIUM/ORIENTATION: Yes oriented to person, Yes oriented to place and Yes oriented to time Skin: COMMON NORMALS: no rashes or lesions noted GENERAL SKIN EXAM: no rashes or lesions noted Course Vital Signs: Vital signs: Vital Signs Temperature 98.9 F 02/16/24 09:16 Pulse Rate 88 02/16/24 11:48 Respiratory Rate 14 02/16/24 11:15 Blood Pressure 137/87 02/16/24 11:48 Pulse Oximetry 98 02/16/24 11:48 Oxygen Delivery Me thod Room Air 02/16/24 09:35 MDM - Dizziness Medical Decision Making No focal neurologic deficits noted symptoms resolved after Benadryl. She has very minimal symptoms after this. Examination ears TMs bilaterally are clear no other neurodeficits noted on repeat exam. Will discharge patient will have meclizine to use. Follow-up with primary care as needed return for worsening symptoms Medical Records I reviewed the patient's medical records. Lab Data I reviewed the patient's lab results. 02/16/24 09:34 02/16/24 09:34 Radiology Impressions Chest X-Ray 02/16/24 09:13 IMPRESSION: No acute findings. Head CT 02/16/24 09:40 IMPRESSION: 1. No evidence of intracranial hemorrhage or mass effect. 2. No acute intracranial findings. Laboratory Results WBC 8.39 10^3/uL (3.29-11.43) 02/16/24 09:34 RBC 4.80 10^6/uL (3.85-5.65) 02/16/24 09:34 Hgb 14.60 g/dL (11.27-16.99) 02/16/24 09:34 Hct 43.4 % (36-47) 02/16/24 09:34 MCV 90.4 fl (85-98) 02/16/24 09:34 MCH 30.4 pg (27-33) 02/16/24 09:34 MCHC 33.6 g/dL (30-55) 02/16/24 09:34 RDW 12.4 % (12.1-15.1) 02/16/24 09:34 Plt Count 246 10^3/cmm (157-399) 02/16/24 09:34 MPV 9.7 fL (7.4-10.4) 02/16/24 09:34 Neut % (Auto) 62.5 % 02/16/24 09:34 Lymph % (Auto) 27.8 % 02/16/24 09:34 Leslie % (Auto) 6.7 % 02/16/24 09:34 Eos % (Auto) 2.1 % 02/16/24 09:34 Baso % (Auto) 0.5 % 02/16/24 09:34 Neut # (Auto) 5.25 10^3/uL (1.8-7.7) 02/16/24 09:34 Lymph # (Auto) 2.3 10^3/uL (0.8-4.8) 02/16/24 09:34 Leslie # (Auto) 0.6 10^3/uL (0.2-0.9) 02/16/24 09:34 Eos # (Auto) 0.2 10^3/uL (0.0-0.8) 02/16/24 09:34 Baso # (Auto) 0.0 10^3/uL (0.0-0.1) 02/16/24 09:34 Nucleated RBC % (auto) 0 % 02/16/24 09:34 Nucleated RBCs # 0.0 /100WBC 02/16/24 09:34 Specimen Type Arterial 02/16/24 09:40 Sample Site Radial, left 02/16/24 09:40 ABG pH 7.42 (7.35-7.45) 02/16/24 09:40 ABG pCO2 36.0 mmHg (35-45) 02/16/24 09:40 ABG pO2 76.2 mmHg (80.0-100.0) L 02/16/24 09:40 ABG PO2/FiO2 Ratio 362 02/16/24 09:40 ABG HCO3 23.1 mmol/L (22-26) 02/16/24 09:40 ABG O2 Saturation 96.6 02/16/24 09:40 ABG Base Excess -0.9 mmol/L (-2.0-2.0) 02/16/24 09:40 James Test Pos 02/16/24 09:40 A-a O2 Gradient 3.6 mmHg (5-10) L 02/16/24 09:40 Hematocrit 44.9 % (37-47) 02/16/24 09:40 Hgb O2 Saturation 93.1 % (95-100) L 02/16/24 09:40 Carboxyhemoglobin 2.9 %THgb (0.4-20.1) 02/16/24 09:40 Methemoglobin 0.8 % (0.4-1.5) 02/16/24 09:40 Total Hemoglobin 14.7 g/dL (12-16) 02/16/24 09:40 Sodium 138.0 mmol/L (131-143) 02/16/24 09:40 Potassium 4.2 mmol/L (3.5-5.0) 02/16/24 09:40 Glucose 338.0 mg/dL (70-115) H 02/16/24 09:40 Ionized Calcium 1.3 mmol/L (1.1-1.4) 02/16/24 09:40 O2 Delivery Device Room air 02/16/24 09:40 FiO2 21.0 % 02/16/24 09:40 Android Ui Developer ID [place] 02/16/24 09:40 Sodium 134 mmol/L (136-145) L 02/16/24 09:34 Potassium 4.4 mmol/L (3.5-5.1) 02/16/24 09:34 Chloride 99 mmol/L (98-107) 02/16/24 09:34 Carbon Dioxide 22 mmol/L (22-29) 02/16/24 09:34 Anion Gap 17.4 (5-19) 02/16/24 09:34 BUN 12 mg/dL (6-20) 02/16/24 09:34 Creatinine 0.6 mg/dL (0.5-0.9) 02/16/24 09:34 GFR Calculation 113.1 mL/min (90-130) 02/16/24 09:34 Glucose 327 mg/dL (65-115) H 02/16/24 09:34 Calculated Osmolality 290 mOsm/kg (285-295) 02/16/24 09:34 Calcium 9.7 mg/dL (8.5-10.5) 02/16/24 09:34 Total Bilirubin 0.3 mg/dL (0.15-1.2) 02/16/24 09:34 AST 15 U/L (0-32) 02/16/24 09:34 ALT 21 U/L (0-33) 02/16/24 09:34 Alkaline Phosphatase 75 U/L (35-105) 02/16/24 09:34 Total Protein 7.3 g/dL (6.6-8.7) 02/16/24 09:34 Albumin 4.0 g/dL (3.5-5.2) 02/16/24 09:34 Globulin 3.3 g/dL (1.3-4.6) 02/16/24 09:34 HCG, Qual Negative (Negative) 02/16/24 09:34 Urine Color Yellow (Yellow) 02/16/24 09:35 Urine Appearance Cloudy (CLEAR) A 02/16/24 09:35 Urine pH 6.0 (5-7) 02/16/24 09:35 Ur Specific [place] 1.016 (1.005-1.030) 02/16/24 09:35 Urine Protein Negative (Negative) 02/16/24 09:35 Urine Glucose (UA) 3+ (Normal) H 02/16/24 09:35 Urine Ketones Negative (Negative) 02/16/24 09:35 Urine Blood Negative (Negative) 02/16/24 09:35 Urine Nitrate Negative (Negative) 02/16/24 09:35 Urine Bilirubin Negative (Negative) 02/16/24 09:35 Urine Urobilinogen 1.0 mg/dL (Negative) 02/16/24 09:35 Ur Leukocyte Esterase Negative (Negative) 02/16/24 09:35 Urine RBC 0-2 /hpf (0-2) 02/16/24 09:35 Urine WBC 0-5 /hpf (0-5) 02/16/24 09:35 Ur Squamous Epith Cells 6-10 /hpf (0-5) 02/16/24 09:35 Amorphous Sediment Not Reportable 02/16/24 09:35 Urine Bacteria Trace /hpf (NONE) 02/16/24 09:35 Hyaline Casts 0-4 /lpf H 02/16/24 09:35 Serum Ketones Negative (Negative) 02/16/24 09:34 All radiology interpretation(s) finalized by discharge Discharge Plan Discharge Patient Disposition: Home Clinical Impression: Benign paroxysmal positional vertigo Condition: Stable Prescriptions: New meclizine 25 mg tablet 25 mg PO QID PRN (Reason: dizziness) Qty: 20 0RF No Action (DME) Blood Glucose Test Strip See Rx Instructions .Route Qty: 150 5RF Rx Instructions: four times per day (DME) blood-glucose meter [Blood Glucose Monitoring] Kit See Rx Instructions .Route Qty: 1 0RF Rx Instructions: As directed ibuprofen 800 mg tablet 800 mg PO TID PRN (Reason: pain) Qty: 60 0RF alprazolam 0.25 mg Tablet 12.5 mg PO PRN PRN (Reason: Anxiety) Discharge Orders: Discharge ED (Routine); Ordered 02/16/24 Ordered By: Clay Stanley Discharge Diet: Usual diet Discharge Activity: Increase activity as tolerated Patient Instructions: Benign Paroxysmal Positional Vertigo (ED), Opioid Safety, Pain Management Activity Restrictions/Additional Instructions: Thank you for choosing [facility] for your healthcare needs today. It is very important that you follow up as instructed or that you return to the Emergency Department should you have concerns or if your condition changes or worsens in any way. Coding Level of Care Code ED Magazine Editor for Perri Ndiyae
[2024-02-16 09:40] LABS: Basophils % 0.5 %; Eosinophils # 0.2 10^3/uL (0.0-0.8); Eosinophils % 2.1 %; Hematocrit 43.4 % (36-47); Lymphocytes # 2.3 10^3/uL (0.8-4.8); Lymphocytes % 27.8 %; Mean Corpuscular HGB Conc 33.6 g/dL (30-55); Mean Corpuscular Hemoglobin 30.4 pg (27-33); Mean Corpuscular Volume 90.4 fl (85-98); Mean Platelet Volume 9.7 fL (7.4-10.4); Monocytes # 0.6 10^3/uL (0.2-0.9); Monocytes % 6.7 %; Neutrophils # 5.25 10^3/uL (1.8-7.7); Neutrophils % 62.5 %; Nucleated Red Blood Cells % 0 %; Platelet Count 246 10^3/cmm (157-399); Red Cell Distribution Width 12.4 % (12.1-15.1); White Blood Count 8.39 10^3/uL (3.29-11.43)
--- NOTE | 2024-02-16 09:40 | CT_ITS ---
WS: [id number] CT HEAD TECHNIQUE: Noncontrast CT of the head obtained from the skullbase to the vertex. CLINICAL INFORMATION: Sudden onset dizziness COMPARISON: CT head 11/06/2021 DLP: 1154.[address] scans at [facility] use at least one of these dose optimization techniques: automated e xposure control; mA and/or kV adjustment per patient size (includes targeted exams where dose is matc hed to clinical indication); or iterative reconstruction. FINDINGS: No evidence of intracranial hemorrhage or mass effect. Ventricular system and basal cisterns are maxwell nt. No extra-axial fluid collections. No evidence of mass or mass effect. Normal bueno-white different iation. Mild mucosal thickening in the paranasal sinuses. Trace fluid in the sphenoid sinus. Mastoid air cell s are well aerated. CT/CT head wo con* [id number] IMPRESSION: 1. No evidence of intracranial hemorrhage or mass effect. 2. No acute intracranial findings.
[2024-02-16 09:45] LABS: Bilirubin Urine Negative (Negative); Blood Urine Negative (Negative); Glucose Urine UA 3+ (Normal); Ketones Urine Negative (Negative); Leukocyte Esterase Urine Negative (Negative); Nitrate Urine Negative (Negative); Protein Urine Negative (Negative); Specific Gravity, Urine 1.016 (1.005-1.030); Urine Appearance Cloudy (CLEAR); Urine Color Yellow (Yellow)
[2024-02-16 09:47] LABS: Add Urine Microscopic? YES; Bacteria Urine Trace /hpf; Hyaline Casts Urine 0-4 /lpf; RBC Urine 0-2 /hpf (0-2); WBC Urine 0-5 /hpf (0-5)
[2024-02-16 09:51] LABS: Ketone (Acetest) Serum Negative (Negative)
[2024-02-16 09:51] LABS: ABG PH Result 7.42 (7.35-7.45); Alveolar-Arterial Oxygen Gradi 3.6 mmHg (5-10); Arterial Blood Gas Hematocrit 44.9 % (37-47); Base Excess ABG -0.9 mmol/L (-2.0-2.0); Blood Gas Allen Test Pos; Blood Gas Operator Identificat WALCI; Blood Gas Sample Site Radial, left; Blood Gas Sample Type Arterial; Carboxyhemoglobin 2.9 %THgb (0.4-20.1); HCO3 ABG 23.1 mmol/L (22-26); HGB O2 Sat 93.1 % (95-100); Ionized Calcium Level - ABG 1.3 mmol/L (1.1-1.4); Methemoglobin 0.8 % (0.4-1.5); Oxygen Device ROOM AIR; Oxygen Saturation ABG 96.6; PO2 ABG 76.2 mmHg (80.0-100.0); PO2 FiO2 Ratio Arterial Blood 362; Potassium Level - ABG 4.2 mmol/L (3.5-5.0); Total Hemoglobin 14.7 g/dL (12-16)
[2024-02-16 09:53] LABS: HCG, Serum Qual Negative (Negative)
[2024-02-16 09:55] LABS: Alanine Aminotransferase 21 U/L (0-33); Alkaline Phosphatase 75 U/L (35-105); Anion Gap 17.4 (5-19); Aspartate Amino Transferase 15 U/L (0-32); Blood Urea Nitrogen 12 mg/dL (6-20); Calcium 9.7 mg/dL (8.5-10.5); Carbon Dioxide 22 mmol/L (22-29); Chloride 99 mmol/L (98-107); Creatinine Clr Calc Pharmacy 151.2139; Globulin 3.3 g/dL (1.3-4.6); Glomerular Filtration Rate 113.1 mL/min (90-130); Glucose 327 mg/dL (65-115); Osmolality Calculated 290 mOsm/kg (285-295); Potassium 4.4 mmol/L (3.5-5.1); Sodium 134 mmol/L (136-145); Total Bilirubin 0.3 mg/dL (0.15-1.2); Total Protein 7.3 g/dL (6.6-8.7)
[2024-02-16] MEDS: sodium chloride 0.9% 1,000 ML 999 ML IV (10:14)
[2024-02-16] MEDS: diphenhydrAMINE 50 mg/mL SDV 1mL 25 MG IVP (10:16)
== END 2024-02-16 11:45 | disposition home or self-care (01) ==
PROVIDERS: Emergency Provider Family Medicine
DX: H81.10 Benign paroxysmal vertigo, unspecified ear (principal); J44.9 Chronic obstructive pulmonary disease, unspecified; E11.9 Type 2 diabetes mellitus without complications; Z87.891 Personal history of nicotine dependence
CPT/HCPCS: 36415; 36600; 70450; 71045; 80051; 80053; 81001; 82009; 82330; 82805; 84703; 85025; 93005; 96374; 99285; J1200; J7030

== ENCOUNTER → 2025-02-22 09:05 | Outpatient (BNVA) | payer MEDICAID, SELFPAY | PROVIDERS: Visit Provider Obstetrics & Gynecology | DX: Z01.419 Encounter for gynecological examination (general) (routine) without abnormal findings (principal) | CPT/HCPCS: 84315; 87624 ==

== ENCOUNTER → 2025-03-01 13:09 | Outpatient (BNVA) | payer MEDICAID, SELFPAY | PROVIDERS: PCP Nurse Practitioner Adult Health; Visit Provider Obstetrics & Gynecology | DX: R30.0 Dysuria (principal); R35.89 Other polyuria | CPT/HCPCS: 81000; 87086 ==